=== PATIENT | male | born 1960 | race Caucasian/White ===

== ENCOUNTER 2020-12-01 11:47 | Inpatient (IN) | payer OTHER ==
--- NOTE | 2020-12-01 13:32 | RAD REPORT ---
EXAM DESCRIPTION: RAD - Chest Pa And Lat (2 Views) - 12/01/2020 1:15 pm CLINICAL HISTORY: COUGH COMPARISON: No comparisons FINDINGS: Widespread patchy bilateral airspace disease, centered more in the mid lungs and lung base s. The heart size is within normal limits.No acute osseous abnormality. No significant pleural effusi ons or pneumothorax. IMPRESSION: Widespread airspace disease concerning for at least moderate multifocal pneumonia, inclu ding Covid-19.
[2020-12-01 16:11] LABS: Absolute Lymphocytes (CBC) 0.4 K/uL (0.7-4.9); Basophils % 0.2 % (0-1.3); Hematocrit 48.6 % (39.6-49.0); MPV 8.1 fL (7.6-11.3); RBC Red Blood Cell Count 5.39 M/uL (4.33-5.43)
[2020-12-01 16:12] LABS: Protime INR 1.17
[2020-12-01 16:51] LABS: ALT/SGPT 35 U/L (12-78); AST/SGOT 26 U/L (15-37); Alkaline Phosphatase 88 U/L (45-117); BUN Blood Urea Nitrogen 25 mg/dL (7-18); Bicarbonate 26 mmol/L (21-32); Bilirubin Direct 0.1 mg/dL (0-0.2); Bilirubin Total 0.5 mg/dL (0.2-1.0); Ferritin 745.7 ng/mL (26-388); Glucose Level 110 mg/dL (74-106); Lipase 84 U/L (73-393); Potassium 4.2 mmol/L (3.5-5.1); Protein, Total 7.8 g/dL (6.4-8.2); Sodium Level 136 mmol/L (136-145); Troponin (Emerg Dept Use Only) < 0.02 ng/mL (0.0-0.045)
[2020-12-01] MEDS ORDERED: LORazepam 2 MG/ML VIAL ONE (18:19)
[2020-12-01] MEDS ORDERED: KETOROLAC 30 MG/ML INJ ONE (18:19)
--- NOTE | 2020-12-01 18:38 | RAD REPORT ---
EXAM DESCRIPTION: CT - Chest For Pe Angio - 12/01/2020 6:27 pm CLINICAL HISTORY: DYSPNEA COMPARISON: Chest Pa And Lat (2 Views) dated 12/01/2020 FINDINGS: Chest Wall: No suspicious thyroid nodules or pathologic lymphadenopathy. Lungs: Moderate bilateral airspace disease which is mostly confluent and worse in the mid lungs and l ower lobes. Pleura: No significant effusions or pneumothorax. Mediastinum/hollis: No pathologic lymphadenopathy. Pulmonary arteries/Aorta: No filling defect identified. No aortic aneurysm. Heart: No significant pericardial effusion. Cardiomegaly. Reflux of contrast into the hepatic veins. Upper abdomen: No acute abnormality. Bones: No acute abnormality. IMPRESSION: Negative for pulmonary embolism. Moderate widespread bilateral airspace disease concerni ng for multifocal pneumonia, including Covid-19.
--- NOTE | 2020-12-01 19:25 | ER ---
Nurse's Notes [facility] Name: Arsalan Cervantes Age: 59 yrs Sex: Male : 1960 Arrival Date: 12/01/2020 Time: 11:52 Bed 16 Private MD: Diagnosis: Coronavirus infection, unspecified;Viral pneumonia, unspecified Presentation: 12/01 12:28 Chief complaint: Patient states: Coughing up blood 11/30, SOB, tightness in chest with kg deep breath, low grade fever, sore throat, cough. Coronavirus screen: Client denies travel out of the [place] in the last 14 days. Client indicates they have traveled out of the [place] in the last 14 days. Client presents with at least one sign or symptom that may indicate coronavirus-19. Standard/surgical mask placed on the client. Provider contacted for isolation considerations. Client reports previous positive COVID test result. Date of collection: November 27, 2020. Ebola Screen: Patient negative for fever greater than or equal to 101.5 degrees Fahrenheit, and additional compatible Ebola Virus Disease symptoms Patient denies exposure to infectious person. Patient denies travel to an Ebola-affected area in the 21 days before illness onset. No symptoms or risks identified at this time. Initial Sepsis Screen: Does the patient meet any 2 criteria? No. Patient's initial sepsis screen is negative. Does the patient have a suspected source of infection? No. Patient's initial sepsis screen is negative. Risk Assessment: Do you want to hurt yourself or someone else? Patient reports no desire to harm self or others. Onset of symptoms was November 24, 2020. 12:28 Method Of Arrival: Ambulatory kg 12:28 Acuity: ANITHA 4 kg 14:17 Acuity: ANITHA 3 ss Triage Assessment: 12:34 General: Appears in no apparent distress. Behavior is calm, cooperative, appropriate kg for age, quiet. Pain: Pain currently is 2 out of 10 on a pain scale. at worst was 5 out of 10 on a pain scale. level that patient reports is acceptable is 2 out of 10 on a pain scale. Cardiovascular: Reports chest pain, shortness of breath. Historical: - Allergies: 12:31 No Known Allergies; kg - Home Meds: 12:34 lisinopril 10 mg Oral tab 1 tab once daily [Active]; atenolol 50 mg Oral tab 1 tab once kg daily [Active]; hydrochlorothiazide 25 mg Oral tab once daily [Active]; prednisone 20 mg Oral tab [Active]; Mucus Relief Cough 20-400 mg oral tab [Active]; benzonatate 100 mg oral cap 2 caps [Active]; - PMHx: 12:31 Atrial fibrillation; Sleep apnea; kg 12:32 Skin Cancer; kg - PSHx: 12:32 tounge sx; kg - Immunization history:: Adult Immunizations not up to date, Client reports having NOT received the Covid vaccine. - Social history:: Smoking status: Patient denies any tobacco usage or history of. Patient uses alcohol, occasionally. Screenin:37 Abuse screen: Denies threats or abuse. Denies injuries from another. Nutritional kg screening: No deficits noted. Tuberculosis screening: No symptoms or risk factors identified. Fall Risk None identified. Assessment: 15:11 General: Appears in no apparent distress. comfortable, Behavior is calm, cooperative, jd3 appropriate for age. Pain: Complains of pain in head and chest Pain does not radiate. Quality of pain is described as aching, Pain began gradually. Neuro: Level of Consciousness is awake, alert, obeys commands, Oriented to person, place, time, situation. Cardiovascular: Denies chest pain, Capillary refill < 3 seconds Patient's skin is warm and dry. Respiratory: Reports shortness of breath on exertion cough that is persistent Airway is patent Respiratory effort is even, unlabored, Respiratory pattern is regular, symmetrical, Denies cough, shortness of breath. GI: Abdomen is round non-distended, Abd is soft and non tender X 4 quads. Reports nausea, Patient currently denies abdominal pain. : No signs and/or symptoms were reported regarding the genitourinary system. EENT: No signs and/or symptoms were reported regarding the EENT system. Derm: Skin is intact, Skin is dry, Skin is normal, Skin temperature is warm. Musculoskeletal: Circulation, motion, and sensation intact. Range of motion: intact in all extremities. 16:19 Reassessment: Patient appears in no apparent distress at this time. No changes from jd3 previously documented assessment. Patient and/or family updated on plan of care and expected duration. Pain level reassessed. Patient is alert, oriented x 3, equal unlabored respirations, skin warm/dry/pink. 17:53 Reassessment: Patient appears in no apparent distress at this time. No changes from jd3 previously documented assessment. Patient and/or family updated on plan of care and expected duration. Pain level reassessed. Patient is alert, oriented x 3, equal unlabored respirations, skin warm/dry/pink. 18:50 Reassessment: Patient appears in no apparent distress at this time. Patient and/or jd3 family updated on plan of care and expected duration. Pain level reassessed. Patient is alert, oriented x 3, equal unlabored respirations, skin warm/dry/pink. awaiting CT results. resting comfortably in ER stretcher. 19:05 Reassessment: Patient appears in no apparent distress at this time. Patient and/or jb4 family updated on plan of care and expected duration. Pain level reassessed. Patient is alert, oriented x 3, equal unlabored respirations, skin warm/dry/pink. 19:30 Reassessment: Pt standing to urinate, O2 sats dropped to 89, provider notified. jb4 20:00 Reassessment: Patient appears in no apparent distress at this time. Patient and/or jb4 family updated on plan of care and expected duration. Pain level reassessed. Patient is alert, oriented x 3, equal unlabored respirations, skin warm/dry/pink. Vital Signs: 12:28 Pulse 88; Resp 21; Temp 96.7(TE); Pulse Ox 94% ; Weight 127.01 kg (R); Height 5 ft. 8 kg in. (172.72 cm) (R); Pain 2/10; 12:28 BP 150 / 96; kg 15:10 Pulse 84; Resp 20 S; Pulse Ox 94% on R/A; jd3 16:19 BP 146 / 75; Pulse 70; Resp 20 S; Pulse Ox 95% on R/A; jd3 17:53 BP 130 / 73; Pulse 78; Resp 20 S; Pulse Ox 95% on R/A; jd3 18:51 Pulse 95; Resp 20 S; Pulse Ox 94% on R/A; jd3 19:36 BP 161 / 99; Pulse 95; Resp 20; Pulse Ox 93% on R/A; jb4 12:28 Body Mass Index 42.57 (127.01 kg, 172.72 cm) kg ED Course: 11:52 Patient arrived in ED. as 12:31 Triage completed. kg 12:37 Patient has correct armband on for positive identification. kg 13:15 XRAY Chest Pa And Lat (2 Views) In Process Unspecified. EDMS 13:48 In[facility] Thurston [facility]C [facility] kb 13:49 Heraclio Meneses MD is Attending Physician. kb 13:59 Chris Sandoval, ТАТЬЯНА is Primary Nurse. jd3 14:45 Missed attempt(s): 20 gauge in left antecubital area. Bleeding controlled, band aid jd3 applied, catheter tip intact. Missed attempt(s): 20 gauge in right forearm. Bleeding controlled, band aid applied, catheter tip intact. Patient maintains SpO2 saturation greater than 95% on room air. 15:10 media monitor on. Pulse ox on. NIBP on. jd3 15:13 Arm band placed on. EKG completed in triage. Results shown to MD. jd3 18:27 CT Chest For PE Angio In Process Unspecified. EDMS 19:23 Alon Merlos is Hospitalizing Provider. kb 20:23 No provider procedures requiring assistance completed. Patient admitted, IV remains in jb4 place. Administered Medications: 18:03 Drug: Ketorolac 30 mg Route: IVP; Site: right antecubital; jd3 19:00 Follow up: Response: No adverse reaction; Marked relief of symptoms; Pain is decreased jb4 18:04 Drug: Ativan (LORazepam) 0.5 mg Route: IVP; Site: right antecubital; jd3 19:00 Follow up: Response: No adverse reaction jb4 19:47 Drug: SOLU-Medrol (methylPrednisoLONE) 125 mg Route: IVP; Site: right antecubital; jb4 20:06 Follow up: Response: No adverse reaction jb4 20:06 Drug: Lovenox (enoxaparin) 40 mg Route: Sub-Q; Site: left lower abdomen; jb4 20:23 Follow up: Response: No adverse reaction jb4 Outcome: 19:24 Decision to Hospitalize by Provider. kb 20:23 Admitted to ER Hold. [facility] for further documentation. jb4 20:23 Condition: stable 20:23 Discharge instructions given to patient, Instructed on the need for admit, Demonstrated understanding of instructions. 12/04 21:55 Patient left the ED. mw Signatures: Dispatcher [employer] Ingrid Knutson, HEDIS NURSE-C HEDIS NURSE-Ckb Viridiana Pfeiffer RN RN Apurva Saldana Shelby, RN RN ss Sony Stacy RN RN jb4 Chris Sandoval RN RN jd3 Sita Tan RN RN kg
--- NOTE | 2020-12-01 19:25 | EDPHYS ---
Physician Documentation [facility] Name: Arsalan Cervantes Age: 59 yrs Sex: Male : 1960 Arrival Date: 12/01/2020 Time: 11:52 Bed 16 Private MD: ED Physician Heraclio Meneses HPI: 12/01 16:20 This 59 yrs old Male presents to ER via Ambulatory with complaints of Chest kb Pain, Cough - covid+. 16:20 The patient or guardian reports cough, that is intermittent, described as mild, kb difficulty breathing, flu symptoms, low-grade fever, myalgias. Onset: The symptoms/episode began/occurred yesterday. Severity of symptoms: At their worst the symptoms were moderate, in the emergency department the symptoms are unchanged. Modifying factors: The symptoms are alleviated by nothing, the symptoms are aggravated by nothing. Associated signs and symptoms: Pertinent positives: chest pain, fever, sore throat, Pertinent negatives: diarrhea, ear ache, nausea, rhinorrhea, vomiting. The patient has not experienced similar symptoms in the past. The patient has been recently seen by a physician:. States he has Covid. Came in today because his symptoms started getting worse yesterday. Reports cough with blood, fever, chest tightness with deep inspiration, and intermittent shortness of breath. Historical: - Allergies: 12:31 No Known Allergies; kg - Home Meds: 12:34 lisinopril 10 mg Oral tab 1 tab once daily [Active]; atenolol 50 mg Oral tab 1 tab once kg daily [Active]; hydrochlorothiazide 25 mg Oral tab once daily [Active]; prednisone 20 mg Oral tab [Active]; Mucus Relief Cough 20-400 mg oral tab [Active]; benzonatate 100 mg oral cap 2 caps [Active]; - PMHx: 12:31 Atrial fibrillation; Sleep apnea; kg 12:32 Skin Cancer; kg - PSHx: 12:32 tounge sx; kg - Immunization history:: Adult Immunizations not up to date, Client reports having NOT received the Covid vaccine. - Social history:: Smoking status: Patient denies any tobacco usage or history of. Patient uses alcohol, occasionally. ROS: 16:28 Abdomen/GI: Negative for abdominal pain, nausea, vomiting, diarrhea, and constipation. kb 16:28 Constitutional: Positive for chills, fatigue, fever, malaise. 16:28 Cardiovascular: Positive for chest pain, Negative for edema, orthopnea, palpitations, paroxysmal nocturnal dyspnea. 16:28 Respiratory: Positive for cough, dyspnea on exertion, hemoptysis, shortness of breath. 16:28 All other systems are negative. Exam: 16:28 Constitutional: This is a well developed, well nourished patient who is awake, alert, kb and in no acute distress. Head/Face: Normocephalic, atraumatic. ENT: Moist Mucous membranes Cardiovascular: Regular rate and rhythm with a normal S1 and S2. No gallops, murmurs, or rubs. No pulse deficits. Respiratory: Respirations even and unlabored. No increased work of breathing, no retractions or nasal flaring. Abdomen/GI: Soft, non-tender. No distention Skin: Warm, dry with normal turgor. Normal color. MS/ Extremity: Pulses equal, no cyanosis. Neurovascular intact. Full, normal range of motion. Neuro: Awake and alert, GCS 15, oriented to person, place, time, and situation. Moves all extremities. Normal gait. Psych: Awake, alert, with orientation to person, place and time. Behavior, mood, and affect are within normal limits. Vital Signs: 12:28 Pulse 88; Resp 21; Temp 96.7(TE); Pulse Ox 94% ; Weight 127.01 kg (R); Height 5 ft. 8 kg in. (172.72 cm) (R); Pain 2/10; 12:28 BP 150 / 96; kg 15:10 Pulse 84; Resp 20 S; Pulse Ox 94% on R/A; jd3 16:19 BP 146 / 75; Pulse 70; Resp 20 S; Pulse Ox 95% on R/A; jd3 17:53 BP 130 / 73; Pulse 78; Resp 20 S; Pulse Ox 95% on R/A; jd3 18:51 Pulse 95; Resp 20 S; Pulse Ox 94% on R/A; jd3 19:36 BP 161 / 99; Pulse 95; Resp 20; Pulse Ox 93% on R/A; jb4 12:28 Body Mass Index 42.57 (127.01 kg, 172.72 cm) kg MDM: 13:49 Patient medically screened. kb 16:28 Data reviewed: vital signs, nurses notes. Data interpreted: Pulse oximetry: on room air kb is 95 %. Interpretation: normal. 19:21 Counseling: I had a detailed discussion with the patient and/or guardian regarding: the kb historical points, exam findings, and any diagnostic results supporting the discharge/admit diagnosis, lab results, radiology results, the need for further work-up and treatment in the hospital. Physician consultation: Alexys DANIEL was contacted at 19:22, regarding admission, to the telemetry unit. patient's condition, and will see patient in ED, shortly. 12/01 13:49 Order name: BMP kb 12/01 13:49 Order name: Blood Culture Adult (2); Complete Time: 18:03 kb 12/01 13:49 Order name: C-Reactive Protein; Complete Time: 17:28 kb 12/01 13:49 Order name: CBC with Diff; Complete Time: 19:49 kb 12/01 13:49 Order name: D-Dimer; Complete Time: 16:14 kb 12/01 13:49 Order name: Ferritin; Complete Time: 17:28 kb 12/01 13:49 Order name: LFT's; Complete Time: 17:28 kb 12/01 13:49 Order name: Lactate; Complete Time: 15:36 kb 12/01 13:49 Order name: Lipase; Complete Time: 17:28 kb 12/01 13:49 Order name: PT-INR; Complete Time: 16:14 kb 12/01 13:49 Order name: Procalcitonin; Complete Time: 17:28 kb 12/01 13:49 Order name: Ptt, Activated; Complete Time: 16:14 kb 12/01 13:49 Order name: Troponin (emerg Dept Use Only); Complete Time: 17:28 kb 12/01 13:50 Order name: Basic Metabolic Panel; Complete Time: 17:28 EDMS 12/01 19:45 Order name: CBC Smear Scan; Complete Time: 19:49 EDMS 12/02 00:55 Order name: Urinalysis; Complete Time: 18:03 EDMS 12/02 01:45 Order name: Urine Microscopic Only; Complete Time: 18:03 EDMS 12/02 04:36 Order name: CBC with Automated Diff; Complete Time: 18:03 EDMS 12/02 04:38 Order name: D-Dimer; Complete Time: 18:03 EDMS 12/02 05:03 Order name: Comprehensive Metabolic Panel; Complete Time: 18:03 EDMS 12/02 05:03 Order name: Lipid Profile; Complete Time: 18:03 EDMS 12/02 05:03 Order name: C-Reactive Protein; Complete Time: 18:03 EDMS 12/02 05:04 Order name: T4 Free; Complete Time: 18:03 EDMS 12/02 05:04 Order name: Magnesium; Complete Time: 18:03 EDMS 12/02 05:04 Order name: Thyroid Stimulating Hormone; Complete Time: 18:03 EDMS 12/02 05:04 Order name: Ferritin; Complete Time: 18:03 EDMS 12/03 05:13 Order name: CBC with Automated Diff EDMS 12/03 05:34 Order name: Comprehensive Metabolic Panel EDMS 12/03 05:34 Order name: C-Reactive Protein EDMS 12/03 05:34 Order name: Magnesium EDMS 12/01 12:37 Order name: XRAY Chest Pa And Lat (2 Views); Complete Time: 13:49 kg 12/01 13:49 Order name: EKG; Complete Time: 13:50 kb 12/01 13:49 Order name: Cardiac monitoring; Complete Time: 14:51 kb 12/01 13:49 Order name: Droplet/Contact Precautions; Complete Time: 14:51 kb 12/01 13:49 Order name: EKG - Nurse/Tech; Complete Time: 14:51 kb 12/01 13:49 Order name: IV Start; Complete Time: 15:57 kb 12/01 13:49 Order name: Labs collected and sent; Complete Time: 14:51 kb 12/01 13:49 Order name: O2 Per Protocol; Complete Time: 14:51 kb 12/01 13:49 Order name: O2 Sat Monitoring; Complete Time: 14:51 kb 12/01 15:05 Order name: Labs - recollect needed: recollect labs; Complete Time: 15:57 bd 12/01 16:14 Order name: CT Chest For PE Angio; Complete Time: 18:40 kb 12/03 05:48 Order name: Ferritin EDMS 12/04 05:40 Order name: CBC with Automated Diff EDMS 12/04 05:56 Order name: Comprehensive Metabolic Panel EDMS 12/04 05:56 Order name: C-Reactive Protein EDMS 12/04 05:56 Order name: Magnesium EDMS 12/04 05:56 Order name: Ferritin EDMS Administered Medications: 18:03 Drug: Ketorolac 30 mg Route: IVP; Site: right antecubital; jd3 19:00 Follow up: Response: No adverse reaction; Marked relief of symptoms; Pain is decreased jb4 18:04 Drug: Ativan (LORazepam) 0.5 mg Route: IVP; Site: right antecubital; jd3 19:00 Follow up: Response: No adverse reaction jb4 19:47 Drug: SOLU-Medrol (methylPrednisoLONE) 125 mg Route: IVP; Site: right antecubital; jb4 20:06 Follow up: Response: No adverse reaction jb4 20:06 Drug: Lovenox (enoxaparin) 40 mg Route: Sub-Q; Site: left lower abdomen; jb4 20:23 Follow up: Response: No adverse reaction jb4 Disposition: 12/05 07:01 Co-signature as Attending Physician, Heraclio Meneses MD. rn 07:01 I agree with the assessment and plan of care. Attestation: The patient's history, exam rn findings, diagnostics, and a summary of any interventions or procedures was reviewed in detail with Ingrid DANIEL. Disposition Summary: 12/01/20 19:24 Hospitalization Ordered Hospitalization Status: Observation kb Provider: Alon Merlos Condition: Stable kb Problem: new kb Symptoms: are unchanged kb Bed/Room Type: Standard kb Location: [facility] ER HOLD(12/01/20 20:03) tl1 Room Assignment: ERHOLD-(12/01/20 20:03) tl1 Diagnosis - Coronavirus infection, unspecified kb - Viral pneumonia, unspecified kb Forms: - Medication Reconciliation Form kb - SBAR form kb Signatures: Dispatcher [employer] EDIngrid Carmona, SANTIAGO-C RESEARCH GEOLOGIST-CkEvi Barrera Roman, MD MD rn Attema, Lee, FNP-C SANTIAGO-Hilda Thomas RN RN tl1 Sony Stacy RN RN jb4 Chris Sandoval RN RN jSita Yoo RN RN kg Corrections: (The following items were deleted from the chart) 12/01 20:03 19:24 Telemetry/MedSurg (observation) kb tl1 20:03 19:24 kb tl1
[2020-12-01 19:44] LABS: Blood Morphology Comment NOT SEEN (NOT SEEN); Platelet Estimate ADEQ; White Blood Cell Scan OK (OK)
--- NOTE | 2020-12-01 20:03 | P.HP ---
Certification for Inpatient Patient admitted to: Inpatient With expected LOS: >2 Midnights Patient will require the following post-hospital care: None Practitioner: I am a practitioner with admitting privileges, knowledge of patient current condition, hospital course, and medical plan of care. Services: Services provided to patient in accordance with Admission requirements found in Title 42 Section 412.3 of the Code of Federal Regulations Patient History Date of Service: 12/01/20 Primary Care Provider: Flako pierre Reason for admission: COVID-19 pneumonia History of Present Illness: 59-year-old male with history of atrial fibrillation, obstructive sleep apnea presents emergency department for shortness of breath. Patient reports testing positive for Covid on 11/27/2020 with symptoms beginning on 11/24/2020. Patient has been on oral prednisone at home, not feeling any better. Patient evaluated in the emergency department, labs significant for white blood cell count 12.4 D-dimer 1061 ferritin 745 C-reactive protein [address] PE protocol shows moderate COVID-19, patient does report some mild periodic hemoptysis. 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 - Family History Mother -: Cancer Brother -: Diabetes, Kidney disease - Social History Smoking Status: Never smoker Alcohol use: No CD- Drugs: No Caffeine use: Yes Place of Residence: Home Review of Systems 10-point ROS is otherwise unremarkable General: Weakness, Malaise Respiratory: Cough, Shortness of Breath, Hemoptysis, SOB with Excertion Physical Examination - Physical Exam General: Alert, In no apparent distress, Oriented x3 HEENT: Atraumatic, PERRLA, Mucous membr. moist/pink, EOMI, Sclerae nonicteric Neck: Supple, 2+ carotid pulse no bruit, No LAD, Without JVD or thyroid abnormality Respiratory: Normal air movement, Diminished Cardiovascular: Normal S1 S2, Irregular heart rate/rhythm (A. fib, rate controlled) Gastrointestinal: Normal bowel sounds, No tenderness Musculoskeletal: No tenderness Integumentary: No rashes Neurological: Normal speech, Normal strength at 5/5 x4 extr, Normal tone, Normal affect Lymphatics: No axilla or inguinal lymphadenopathy - Studies Laboratory Data (last 24 hrs) 12/01/20 15:46: PT 13.5 H, INR 1.17, APTT 27.4 12/01/20 15:46: WBC 12.40 H, Hgb 16.4, Hct 48.6, Plt Count 260 12/01/20 15:46: Sodium 136, Potassium 4.2, BUN 25 H, Creatinine 1.08, Glucose 110 H, Total Bilirubin 0.5, AST 26, ALT 35, Alkaline Phosphatase 88, Lipase 84 Assessment and Plan - Plan Assessment: Acute hypoxic respiratory failure secondary to COVID-19 pneumonia with mild hemoptysisunvaccinated Atrial fibrillation not on chronic anticoagulation therapy Obstructive sleep apnea Obesity Plan: Acute hypoxic respiratory failure secondary to COVID-19 pneumonia with mild hemoptysisunvaccinated: CRP significantly elevated, pharmacy consulted for barcitinib. Continue with IV steroids, oral supplements. Daily CRP/ferritin/D- dimer levels. CT negative for pulmonary embolism, patient reports mild hemoptysis over the course of the last 24 to 48 hours. The case discussed with pulmonology recommends Lovenox 40 mg subcu twice daily. Patient previously on Xarelto for A. fib but unable to afford this, will likely need to be discharged on Eliquis with coupon. Supplemental oxygen as needed, daily room air saturations. Atrial fibrillation not on chronic anticoagulation therapy: Previously on Xa relto, unable to afford. Will hold off on full anticoagulation at this time due to mild to mod assist, case was discussed with pulmonology. If patient does well can be advanced to full anticoagulation. Obstructive sleep apnea: Supplemental oxygen as needed, CPAP/BiPAP as needed. Obesity: Lifestyle changes addressed, patient at risk for worsening Covid. DVT PPX: Lovenox Code status: Full Discharge Plan: Home Plan to discharge in: 48 Hours - Advance Directives Does patient have a Living Will: No Does patient have a Durable POA for Healthcare: No - Code Status/Comfort Care Code Status Assessed: Yes (Full code) Critical Care: No Time Spent Managing Pts Care (In Minutes): 55
[2020-12-01] MEDS ORDERED: METHYLPREDNISOLONE 125 MG INJ ONE (20:06)
[2020-12-01] MEDS ORDERED: ENOXAPARIN 40 MG/0.4 ML SQ ONE (20:22)
[2020-12-01] MEDS: METHYLPREDNISOLONE 40 MG INJ IV SCH (21:01)
[2020-12-01] MEDS ORDERED: ONDANSETRON 4 MG/2 ML VIAL IV PRN (21:01)
[2020-12-01] MEDS: ASCORBIC ACID 500 MG TABLET PO SCH (21:01)
[2020-12-01] MEDS: ATORVASTATIN 20 MG TAB PO SCH (21:01)
[2020-12-01] MEDS ORDERED: ASCORBIC ACID 500 MG TABLET ONE (21:54)
[2020-12-01] MEDS ORDERED: ATORVASTATIN 40 MG TAB ONE (21:56)
[2020-12-02 00:52] LABS: Urine Appearance CLEAR (Clear); Urine Bilirubin NEGATIVE (Negative); Urine Blood TRACE (Negative); Urine Color YELLOW (Yellow); Urine Glucose TRACE (Negative); Urine Protein 3+ (Negative); Urine Specific Gravity >=1.030 (1.005-1.030)
[2020-12-02 00:55] LABS: Urine Microscopic Reflex ORDER UMIC
[2020-12-02 01:44] LABS: Urine Amorphous Sediment 1+ /HPF (NONE SEEN); Urine Bacteria <20 /HPF (NONE SEEN); Urine RBC <5 /HPF (NONE SEEN)
[2020-12-02 04:35] LABS: Absolute Lymphocytes (CBC) 0.3 K/uL (0.7-4.9); Basophils % 0.1 % (0-1.3); Hematocrit 46.4 % (39.6-49.0); Lymphocytes % 2.8 % (15.3-44.8); RBC Red Blood Cell Count 5.15 M/uL (4.33-5.43)
[2020-12-02 05:03] LABS: Albumin 2.7 g/dL (3.4-5.0); Bilirubin Total 0.4 mg/dL (0.2-1.0); Ferritin 814.5 ng/mL (26-388); Magnesium 1.9 mg/dL (1.8-2.4); Protein, Total 7.3 g/dL (6.4-8.2); Thyroid Stimulating Hormone 0.444 uIU/mL (0.360-3.740)
--- NOTE | 2020-12-02 07:30 | EKG ---
Test Date: 2020-12-01 Test Time: 15:03:44 Reporter: IVA MEASUREMENT RESULTS: Intervals: Rate: 90 ID: [id number] QT: 354 QTc: 433 Grethel: P: ID: [id number] T: 150 INTERPRETIVE STATEMENTS: Atrial fibrillation Anteroseptal infarct, age undetermined T wave abnormality, consider lateral ischemia Abnormal ECG No previous ECG available for comparison Electronically Signed On 12-02-20 07:28:20 CDT by Irving Jimenez
[2020-12-02] MEDS: ASCORBIC ACID 500 MG TABLET PO SCH ×4 (09:00→20:46)
[2020-12-02] MEDS: ZINC SULFATE 220 MG CAP PO SCH (09:00)
[2020-12-02] MEDS: ENOXAPARIN 40 MG/0.4 ML SQ SCH ×2 (09:00→20:46)
[2020-12-02] MEDS: THIAMINE HCL 100 MG TABLET PO SCH (09:00)
[2020-12-02] MEDS: ASPIRIN EC 81 MG TAB PO SCH (09:00)
[2020-12-02] MEDS: hydroCHLOROthiazide 25 MG TAB PO SCH (09:00)
[2020-12-02] MEDS: atenoloL 50 MG TAB PO SCH (09:00)
[2020-12-02] MEDS: lisinopriL 10 MG TAB PO SCH (09:00)
[2020-12-02] MEDS: VITAMIN D 1000 UNIT TAB PO SCH (09:00)
[2020-12-02] MEDS: METHYLPREDNISOLONE 40 MG INJ IV SCH ×3 (09:00→20:46)
[2020-12-02] MEDS ORDERED: atenoloL 50 MG TAB ONE (09:51)
[2020-12-02] MEDS ORDERED: METHYLPREDNISOLONE 125 MG INJ ONE (09:51)
[2020-12-02] MEDS ORDERED: ASCORBIC ACID 500 MG TABLET ONE ×4 (09:52→20:58)
[2020-12-02] MEDS ORDERED: ZINC SULFATE 220 MG CAP ONE (09:52)
[2020-12-02] MEDS ORDERED: lisinopriL 10 MG TAB ONE (09:52)
[2020-12-02] MEDS ORDERED: THIAMINE HCL 100 MG TABLET ONE (09:52)
[2020-12-02] MEDS ORDERED: ENOXAPARIN 40 MG/0.4 ML SQ ONE ×2 (09:53→20:58)
[2020-12-02] MEDS ORDERED: ASPIRIN EC 81 MG TAB PO ONE (09:53)
[2020-12-02] MEDS ORDERED: hydroCHLOROthiazide 25 MG TAB ONE (10:03)
[2020-12-02] MEDS ORDERED: VITAMIN D 1000 UNIT TAB ONE (10:43)
[2020-12-02] MEDS ORDERED: METHYLPREDNISOLONE 40 MG INJ ONE ×2 (14:03→20:58)
--- NOTE | 2020-12-02 16:48 | P.PN ---
Subjective Date of Service: 12/02/20 Primary Care Provider: [facility] Chief Complaint: COVID-19 pneumonia Patient states his breathing is better. Seen without oxygen. He is coughing intermittently. He was on CPAP/BIPAP earlier. Physical Examination - Vital Signs Temperature: 98.6 F Blood Pressure: 140/78 Pulse: 90 Respirations: 23 Pulse Ox (%): 92 - Physical Exam General: Alert, In no apparent distress, Obese HEENT: Atraumatic Neck: JVD not distended Respiratory: Other (Nonlabored breathing) Cardiovascular: No edema, Regular rate/rhythm, Normal S1 S2 Gastrointestinal: Soft and benign, Non-distended Musculoskeletal: No swelling Integumentary: No rashes Neurological: Normal strength at 5/5 x4 extr - Studies Laboratory Data (last 24 hrs) 12/01/20 15:46: WBC 12.40 H, Hgb 16.4, Hct 48.6, Plt Count 260 12/01/20 15:46: Sodium 136, Potassium 4.2, BUN 25 H, Creatinine 1.08, Glucose 110 H, Total Bilirubin 0.5, AST 26, ALT 35, Alkaline Phosphatase 88, Lipase 84 Assessment And Plan - Current Problems (Diagnosis) (1) Pneumonia due to 2019 novel coronavirus Current Visit: Yes Status: Acute (2) Acute respiratory failure with hypoxia Current Visit: Yes Status: Acute (3) Morbid obesity Current Visit: Yes Status: Acute - Plan Continue COVID protocol with IV steroid, vitamin supplementation, bronchodilators p.r.n.. Ivermectin Pharmacy assessing for antiviral therapy. Pulmonary consult. Josiqukade for DVT prophylaxis. Titrate oxygen. BiPAP p.r.n. Monitor inflammatory markers.
--- NOTE | 2020-12-02 17:14 | P.CNS ---
Date of Consult: 12/02/20 Primary Care Provider: [facility] Chief Complaint: COVID-19 pneumonia History of Present Illness: Age 59 Aw COVID penumonia. HXof AFIB andhemoptysis, Taking oral pred at home not doign better. 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 - Family History Mother Medical History: Cancer Brother Medical History: Diabetes, Kidney disease - Social History Alcohol use: No CD- Drugs: No Caffeine use: Yes Place of Residence: Home Review of Systems General: Weakness Respiratory: Shortness of Breath, Hemoptysis Physical Examination Temp Pulse Resp BP Pulse Ox 98.6 F 90 23 H 140/78 92 12/02/20 16:48 12/02/20 16:48 12/02/20 16:48 12/02/20 16:48 12/02/20 16:48 General: Alert, In no apparent distress, Oriented x3, Mild distress Laboratory Data (last 24 hrs) 12/01/20 15:46: WBC 12.40 H, Hgb 16.4, Hct 48.6, Plt Count 260 - Problems (1) Pneumonia due to 2019 novel coronavirus Current Visit: Yes Status: Acute Plan: Pt is 59 of age AW resp failure/ Cw steroids and ivermectin and aspirin/ HX of hemoptysis Ct scan bialteral COVid pneumonia
[2020-12-02] MEDS: IVERMECTIN 3 MG TABLET PO SCH (18:00)
[2020-12-02] MEDS ORDERED: IVERMECTIN 3 MG TABLET PO SCH (18:00)
[2020-12-02] MEDS: ATORVASTATIN 20 MG TAB PO SCH (20:32)
[2020-12-02] MEDS: BENZONATATE 100 MG CAP PO PRN (20:46)
[2020-12-02] MEDS: ACETAMINOPHEN 500 MG TAB PO PRN (20:46)
[2020-12-02] MEDS ORDERED: ACETAMINOPHEN 500 MG TAB ONE (20:57)
[2020-12-02] MEDS ORDERED: ONDANSETRON 4 MG/2 ML VIAL ONE (20:57)
[2020-12-02] MEDS ORDERED: ATORVASTATIN 20 MG TAB ONE (20:57)
[2020-12-02] MEDS ORDERED: BENZONATATE 100 MG CAP PO ONE (20:57)
[2020-12-03 05:04] LABS: Absolute Lymphocytes (CBC) 0.5 K/uL (0.7-4.9); Basophils % 0.1 % (0-1.3); Hematocrit 45.6 % (39.6-49.0); Lymphocytes % 2.6 % (15.3-44.8); MPV 7.9 fL (7.6-11.3)
[2020-12-03 05:34] LABS: Albumin 2.6 g/dL (3.4-5.0); Bilirubin Total 0.5 mg/dL (0.2-1.0); C-Reactive Protein 87.4 mg/L (<3.00); Magnesium 1.9 mg/dL (1.8-2.4); Potassium 4.3 mmol/L (3.5-5.1); Protein, Total 7.1 g/dL (6.4-8.2)
[2020-12-03 05:48] LABS: Ferritin 884.2 ng/mL (26-388)
[2020-12-03] MEDS: ENOXAPARIN 40 MG/0.4 ML SQ SCH ×2 (08:52→20:12)
[2020-12-03] MEDS: VITAMIN D 1000 UNIT TAB PO SCH (08:52)
[2020-12-03] MEDS: ASPIRIN EC 81 MG TAB PO SCH (08:53)
[2020-12-03] MEDS: ZINC SULFATE 220 MG CAP PO SCH (08:53)
[2020-12-03] MEDS: THIAMINE HCL 100 MG TABLET PO SCH (08:53)
[2020-12-03] MEDS: atenoloL 50 MG TAB PO SCH (08:53)
[2020-12-03] MEDS: lisinopriL 10 MG TAB PO SCH (08:54)
[2020-12-03] MEDS: hydroCHLOROthiazide 25 MG TAB PO SCH (08:54)
[2020-12-03] MEDS: ASCORBIC ACID 500 MG TABLET PO SCH ×4 (08:55→20:11)
[2020-12-03] MEDS: METHYLPREDNISOLONE 40 MG INJ IV SCH ×3 (08:57→20:11)
[2020-12-03] MEDS ORDERED: METHYLPREDNISOLONE 125 MG INJ ONE (09:09)
[2020-12-03] MEDS ORDERED: THIAMINE HCL 100 MG TABLET ONE (09:09)
[2020-12-03] MEDS ORDERED: ZINC SULFATE 220 MG CAP ONE (09:09)
[2020-12-03] MEDS ORDERED: atenoloL 50 MG TAB ONE (09:09)
[2020-12-03] MEDS ORDERED: lisinopriL 10 MG TAB ONE (09:10)
[2020-12-03] MEDS ORDERED: ENOXAPARIN 40 MG/0.4 ML SQ ONE ×2 (09:10→20:26)
[2020-12-03] MEDS ORDERED: ASPIRIN EC 81 MG TAB PO ONE (09:10)
[2020-12-03] MEDS ORDERED: VITAMIN D 1000 UNIT TAB ONE (09:10)
[2020-12-03] MEDS ORDERED: hydroCHLOROthiazide 25 MG TAB ONE (09:10)
[2020-12-03] MEDS ORDERED: ASCORBIC ACID 500 MG TABLET ONE ×4 (09:10→20:26)
[2020-12-03] MEDS ORDERED: METHYLPREDNISOLONE 40 MG INJ ONE ×3 (09:19→20:29)
--- NOTE | 2020-12-03 15:23 | P.PN ---
Subjective Date of Service: 12/03/20 Primary Care Provider: [facility] Chief Complaint: COVID-19 pneumonia Patient states his breathing is better. Patient is using his CPAP most of the time. Physical Examination - Vital Signs Temperature: 98.0 F Blood Pressure: 145/81 Pulse: 81 Respirations: 25 Pulse Ox (%): 92 - Physical Exam General: In no apparent distress, Obese HEENT: Mucous membr. moist/pink Neck: JVD not distended Respiratory: Other (No labored breathing) Cardiovascular: Regular rate/rhythm, Normal S1 S2 Gastrointestinal: Soft and benign, Non-distended Musculoskeletal: No swelling Integumentary: No rashes Neurological: Normal strength at 5/5 x4 extr Assessment And Plan - Current Problems (Diagnosis) (1) Pneumonia due to 2019 novel coronavirus Current Visit: Yes Status: Acute (2) Acute respiratory failure with hypoxia Current Visit: Yes Status: Acute (3) Morbid obesity Current Visit: Yes Status: Acute - Plan Continue COVID protocol with IV steroid, vitamin supplementation, bronchodilators p.r.n.. Patient on Ivermectin Pharmacy assessing for antiviral therapy. Pulmonary input appreciated Francisco Javier for DVT prophylaxis. Titrate oxygen. BiPAP p.r.n. Monitor inflammatory markers.
[2020-12-03] MEDS: ATORVASTATIN 20 MG TAB PO SCH (20:11)
[2020-12-03] MEDS ORDERED: ATORVASTATIN 20 MG TAB ONE (20:25)
[2020-12-04 05:33] LABS: Absolute Lymphocytes (CBC) 0.3 K/uL (0.7-4.9); Basophils % 0.2 % (0-1.3); Hematocrit 45.5 % (39.6-49.0); MPV 7.6 fL (7.6-11.3); RBC Red Blood Cell Count 5.12 M/uL (4.33-5.43)
[2020-12-04 05:55] LABS: Albumin 2.6 g/dL (3.4-5.0); Bilirubin Total 0.5 mg/dL (0.2-1.0); C-Reactive Protein 34.3 mg/L (<3.00); Ferritin 690.1 ng/mL (26-388); Potassium 3.9 mmol/L (3.5-5.1); Protein, Total 6.8 g/dL (6.4-8.2)
[2020-12-04] MEDS ORDERED: THIAMINE HCL 100 MG TABLET ONE (08:12)
[2020-12-04] MEDS ORDERED: ZINC SULFATE 220 MG CAP ONE (08:12)
[2020-12-04] MEDS ORDERED: atenoloL 50 MG TAB ONE (08:12)
[2020-12-04] MEDS ORDERED: ASPIRIN EC 81 MG TAB PO ONE (08:12)
[2020-12-04] MEDS ORDERED: ASCORBIC ACID 500 MG TABLET ONE ×3 (08:13→20:36)
[2020-12-04] MEDS ORDERED: VITAMIN D 1000 UNIT TAB ONE (08:13)
[2020-12-04] MEDS ORDERED: lisinopriL 10 MG TAB ONE (08:13)
[2020-12-04] MEDS ORDERED: POTASSIUM CL SA 10 MEQ TAB PO ONE ×2 (08:13→09:00)
[2020-12-04] MEDS ORDERED: METHYLPREDNISOLONE 40 MG INJ ONE ×3 (08:14→13:49)
[2020-12-04] MEDS ORDERED: ENOXAPARIN 40 MG/0.4 ML SQ ONE ×2 (08:14→20:36)
[2020-12-04] MEDS: VITAMIN D 1000 UNIT TAB PO SCH (09:00)
[2020-12-04] MEDS: hydroCHLOROthiazide 25 MG TAB PO SCH (09:00)
[2020-12-04] MEDS: ASPIRIN EC 81 MG TAB PO SCH (09:00)
[2020-12-04] MEDS: ENOXAPARIN 40 MG/0.4 ML SQ SCH ×2 (09:24→20:43)
[2020-12-04] MEDS: atenoloL 50 MG TAB PO SCH (09:25)
[2020-12-04] MEDS: ZINC SULFATE 220 MG CAP PO SCH (09:26)
[2020-12-04] MEDS: lisinopriL 10 MG TAB PO SCH (09:26)
[2020-12-04] MEDS: ASCORBIC ACID 500 MG TABLET PO SCH ×4 (09:26→20:43)
[2020-12-04] MEDS: THIAMINE HCL 100 MG TABLET PO SCH (09:26)
[2020-12-04] MEDS: METHYLPREDNISOLONE 40 MG INJ IV SCH ×3 (09:51→20:43)
[2020-12-04] MEDS: BARICITINIB 2 MG TABLET PO SCH (10:01)
[2020-12-04] MEDS ORDERED: hydroCHLOROthiazide 25 MG TAB ONE ×2 (10:11→10:12)
--- NOTE | 2020-12-04 11:22 | P.PN ---
Subjective Date of Service: 12/04/20 Primary Care Provider: Omar ignacio Chief Complaint: COVID-19 pneumonia Still on high conc of O2 / Stable Review of Systems General: Weakness Respiratory: Shortness of Breath Physical Examination - Vital Signs Temperature: 97.8 F Blood Pressure: 112/56 Pulse: 80 Respirations: 20 Pulse Ox (%): 93 - Physical Exam General: Alert, Oriented x3, Cooperative Assessment & Plan - Problems (Diagnosis) (1) Pneumonia due to 2019 novel coronavirus Current Visit: Yes Status: Acute Plan: No sig change/ Requiring high conc of O2/ labs reviewed/ Add Barctinib/ DC HZTZ/ poss DC am
--- NOTE | 2020-12-04 14:53 | P.PN ---
Subjective Date of Service: 12/04/20 Primary Care Provider: [facility] Chief Complaint: COVID-19 pneumonia Patient requiring 5-6 L of oxygen by nasal canula. He is complaining of shortness of breath. Physical Examination - Vital Signs Temperature: 97.8 F Blood Pressure: 128/52 Pulse: 83 Respirations: 28 Pulse Ox (%): 90 - Physical Exam General: Alert, In no apparent distress Neck: JVD not distended Respiratory: Other (Nonlabored breathing) Cardiovascular: No edema, Regular rate/rhythm, Normal S1 S2 Gastrointestinal: Soft and benign, Non-distended Musculoskeletal: No swelling Integumentary: No rashes Neurological: Normal strength at 5/5 x4 extr Assessment And Plan - Current Problems (Diagnosis) (1) Pneumonia due to 2019 novel coronavirus Current Visit: Yes Status: Acute (2) Acute respiratory failure with hypoxia Current Visit: Yes Status: Acute (3) Morbid obesity Current Visit: Yes Status: Acute - Plan Continue IV steroid, vitamin supplementation, bronchodilators p.r.n.. Patient on Ivermectin Patient started on Baracitinib Pulmonary-Dr. León is followingSuad Mcintyre for DVT prophylaxis. Wean oxygen as tolerated BiPAP p.r.n. Monitor inflammatory markers.
[2020-12-04] MEDS: IVERMECTIN 3 MG TABLET PO SCH (17:56)
[2020-12-04] MEDS ORDERED: METHYLPREDNISOLONE 125 MG INJ ONE (20:35)
[2020-12-04] MEDS ORDERED: ATORVASTATIN 20 MG TAB ONE (20:35)
[2020-12-04] MEDS: ATORVASTATIN 20 MG TAB PO SCH (20:43)
[2020-12-04] MEDS: TRAZODONE 50 MG TABLET PO SCH (21:00)
[2020-12-05] MEDS ORDERED: atenoloL 25 MG TAB ONE ×2 (07:46→08:08)
[2020-12-05 07:53] LABS: Absolute Lymphocytes (CBC) 0.3 K/uL (0.7-4.9); Hematocrit 47.1 % (39.6-49.0); Lymphocytes % 1.6 % (15.3-44.8); MPV 7.4 fL (7.6-11.3); RBC Red Blood Cell Count 5.29 M/uL (4.33-5.43)
[2020-12-05 08:10] LABS: Albumin 2.5 g/dL (3.4-5.0); Bilirubin Total 0.6 mg/dL (0.2-1.0); Magnesium 2.2 mg/dL (1.8-2.4); Potassium 4.2 mmol/L (3.5-5.1); Protein, Total 6.8 g/dL (6.4-8.2)
[2020-12-05] MEDS: VITAMIN D 1000 UNIT TAB PO SCH (08:25)
[2020-12-05] MEDS: ENOXAPARIN 40 MG/0.4 ML SQ SCH ×2 (08:25→19:39)
[2020-12-05] MEDS: ZINC SULFATE 220 MG CAP PO SCH (08:26)
[2020-12-05] MEDS: ASPIRIN EC 81 MG TAB PO SCH (08:26)
[2020-12-05] MEDS: ASCORBIC ACID 500 MG TABLET PO SCH ×4 (08:26→19:39)
[2020-12-05] MEDS: lisinopriL 10 MG TAB PO SCH (08:26)
[2020-12-05] MEDS: METHYLPREDNISOLONE 40 MG INJ IV SCH ×3 (08:27→19:38)
[2020-12-05] MEDS: THIAMINE HCL 100 MG TABLET PO SCH (08:27)
[2020-12-05] MEDS: atenoloL 50 MG TAB PO SCH (08:35)
[2020-12-05] MEDS: BARICITINIB 2 MG TABLET PO SCH (10:12)
--- NOTE | 2020-12-05 15:47 | P.PN ---
Subjective Date of Service: 12/05/20 Primary Care Provider: [facility] Chief Complaint: COVID-19 pneumonia Patient requiring 5-6 L of oxygen by nasal canula. Also using BiPAP Physical Examination - Vital Signs Temperature: 97.8 F Blood Pressure: 123/72 Pulse: 75 Respirations: 26 Pulse Ox (%): 96 - Physical Exam General: In no apparent distress, Oriented x3, Obese HEENT: Mucous membr. moist/pink Neck: JVD not distended Respiratory: Other (Nonlabored breathing) Cardiovascular: Regular rate/rhythm, Normal S1 S2 Gastrointestinal: Soft and benign, Non-distended Musculoskeletal: No swelling Neurological: Normal strength at 5/5 x4 extr Assessment And Plan - Current Problems (Diagnosis) (1) Pneumonia due to 2019 novel coronavirus Current Visit: Yes Status: Acute (2) Acute respiratory failure with hypoxia Current Visit: Yes Status: Acute (3) Morbid obesity Current Visit: Yes Status: Acute - Plan Continue IV steroid, vitamin supplementation, bronchodilators p.r.n.. Patient on Ivermectin Continue Baracitinib Pulmonary-Dr. León is following. Francisco Javier for DVT prophylaxis. Wean oxygen as tolerated BiPAP p.r.n. Monitor inflammatory markers.
[2020-12-05] MEDS: ATORVASTATIN 20 MG TAB PO SCH (19:39)
[2020-12-05] MEDS: TRAZODONE 50 MG TABLET PO SCH (19:39)
[2020-12-05] MEDS: ZOLPIDEM TARTRATE 5 MG TABLET PO PRN (22:26)
[2020-12-06] MEDS ORDERED: LORazepam 2 MG/ML VIAL IV ONE (02:32)
[2020-12-06] MEDS ORDERED: atenoloL 25 MG TAB ONE (07:40)
[2020-12-06] MEDS: ENOXAPARIN 40 MG/0.4 ML SQ SCH ×2 (07:59→19:52)
[2020-12-06] MEDS: VITAMIN D 1000 UNIT TAB PO SCH (07:59)
[2020-12-06] MEDS: ZINC SULFATE 220 MG CAP PO SCH (08:00)
[2020-12-06] MEDS: ASCORBIC ACID 500 MG TABLET PO SCH ×4 (08:00→19:52)
[2020-12-06] MEDS: ASPIRIN EC 81 MG TAB PO SCH (08:00)
[2020-12-06] MEDS: METHYLPREDNISOLONE 40 MG INJ IV SCH ×3 (08:00→19:52)
[2020-12-06] MEDS: THIAMINE HCL 100 MG TABLET PO SCH (08:00)
[2020-12-06] MEDS: BARICITINIB 2 MG TABLET PO SCH (08:04)
[2020-12-06] MEDS: atenoloL 50 MG TAB PO SCH (09:00)
[2020-12-06] MEDS: lisinopriL 10 MG TAB PO SCH (09:08)
--- NOTE | 2020-12-06 15:49 | P.PN ---
Subjective Date of Service: 12/06/20 Primary Care Provider: [facility] Chief Complaint: COVID-19 pneumonia Patient is currently on high-flow. He reports shortness of breath. Physical Examination - Vital Signs Temperature: 98 F Blood Pressure: 132/72 Pulse: 86 Respirations: 18 Pulse Ox (%): 93 - Physical Exam General: Alert, In no apparent distress HEENT: Other (HNFC) Neck: JVD not distended Respiratory: Other (Nonlabored breathing) Cardiovascular: Regular rate/rhythm, Normal S1 S2 Gastrointestinal: Soft and benign, Non-distended Musculoskeletal: No swelling Neurological: Normal strength at 5/5 x4 extr - Studies Microbiology Data (last 24 hrs): 12/01/20 14:45 Blood - Blood Aerobic Blood Culture - Final No growth in 5 days. 12/01/20 14:45 Blood - Blood Anaerobic Blood Culture - Final No growth in 5 days. 12/01/20 14:45 Blood - Blood Aerobic Blood Culture - Final No growth in 5 days. 12/01/20 14:45 Blood - Blood Anaerobic Blood Culture - Final No growth in 5 days. Assessment And Plan - Current Problems (Diagnosis) (1) Pneumonia due to 2019 novel coronavirus Current Visit: Yes Status: Acute (2) Acute respiratory failure with hypoxia Current Visit: Yes Status: Acute (3) Morbid obesity Current Visit: Yes Status: Acute - Plan Continue IV steroid, vitamin supplementation, bronchodilators p.r.n.. Patient on Ivermectin Continue Baracitinib Pulmonary-Dr. León is following. Francisco Javier for DVT prophylaxis. Wean oxygen as tolerated BiPAP p.r.n. Monitor inflammatory markers.
[2020-12-06] MEDS: TRAZODONE 50 MG TABLET PO SCH (19:52)
[2020-12-06] MEDS: ZOLPIDEM TARTRATE 5 MG TABLET PO PRN (19:52)
[2020-12-06] MEDS: ATORVASTATIN 20 MG TAB PO SCH (19:52)
[2020-12-07 07:05] LABS: Absolute Lymphocytes (CBC) 0.2 K/uL (0.7-4.9); Basophils % 0.3 % (0-1.3); Hematocrit 47.3 % (39.6-49.0); Lymphocytes % 0.8 % (15.3-44.8); MPV 7.3 fL (7.6-11.3); RBC Red Blood Cell Count 5.32 M/uL (4.33-5.43)
[2020-12-07 07:26] LABS: C-Reactive Protein 35.9 mg/L (<3.00); Ferritin 1386.6 ng/mL (26-388); Magnesium 2.4 mg/dL (1.8-2.4); Potassium 3.9 mmol/L (3.5-5.1)
--- NOTE | 2020-12-07 07:35 | RAD REPORT ---
EXAM DESCRIPTION: RAD - Chest Single View - 12/07/2020 7:21 am CLINICAL HISTORY: SOB COMPARISON: Chest Pa And Lat (2 Views) dated 12/01/2020; Chest For Pe Angio dated 12/01/2020 FINDINGS: Widespread interstitial and airspace disease bilaterally. This may reflect multifocal pneu monia and/or edema. Cardiomegaly.No acute osseous abnormality. No significant pleural effusions or pn eumothorax. IMPRESSION: Worsened aeration of the lungs compared with 12/01/2020. Question superimposed edema david celestina worsened infection/ARDS.
[2020-12-07] MEDS ORDERED: atenoloL 25 MG TAB ONE (07:41)
[2020-12-07] MEDS: VITAMIN D 1000 UNIT TAB PO SCH (07:41)
[2020-12-07] MEDS: ENOXAPARIN 40 MG/0.4 ML SQ SCH ×2 (07:41→19:49)
[2020-12-07] MEDS: METHYLPREDNISOLONE 40 MG INJ IV SCH ×3 (07:41→19:49)
[2020-12-07] MEDS: THIAMINE HCL 100 MG TABLET PO SCH (07:42)
[2020-12-07] MEDS: ZINC SULFATE 220 MG CAP PO SCH (07:42)
[2020-12-07] MEDS: atenoloL 50 MG TAB PO SCH (07:43)
[2020-12-07] MEDS: ASPIRIN EC 81 MG TAB PO SCH (07:43)
[2020-12-07] MEDS: ASCORBIC ACID 500 MG TABLET PO SCH ×4 (07:43→19:50)
[2020-12-07] MEDS: lisinopriL 10 MG TAB PO SCH (07:44)
[2020-12-07] MEDS: BARICITINIB 2 MG TABLET PO SCH (07:44)
[2020-12-07 08:24] LABS: Platelet Estimate ADEQ
[2020-12-07 08:25] LABS: Blood Morphology Comment NOT SEEN (NOT SEEN); Platelets, Giant NOTED
[2020-12-07] MEDS ORDERED: POTASSIUM CL SA 10 MEQ TAB PO ONE (11:25)
--- NOTE | 2020-12-07 15:47 | P.PN ---
Subjective Date of Service: 12/07/20 Primary Care Provider: [facility] Chief Complaint: COVID-19 pneumonia Subjective: Other (pt reports feeling like he is breathing a little easier this morning. no new complaints, still SOB/ANGUIANO, on high levels of O2. CXR ordered for today, inflammatory markers elevated) Review of Systems 10-point ROS is otherwise unremarkable Physical Examination - Vital Signs Temperature: 97.6 F Blood Pressure: 108/61 Pulse: 88 Respirations: 24 Pulse Ox (%): 92 - Studies Microbiology Data (last 24 hrs): 12/01/20 14:45 Blood - Blood Aerobic Blood Culture - Final No growth in 5 days. 12/01/20 14:45 Blood - Blood Anaerobic Blood Culture - Final No growth in 5 days. 12/01/20 14:45 Blood - Blood Aerobic Blood Culture - Final No growth in 5 days. 12/01/20 14:45 Blood - Blood Anaerobic Blood Culture - Final No growth in 5 days. Assessment & Plan Physician Review Additional Text: Physical Exam General: Alert, In no apparent distress, laying on side HEENT: normal conjunctiva, sclera anicteric Respiratory: nonlabored respirations on HFNC 100% Fio2 Cardiovascular: Regular rate/rhythm, Normal S1 S2 Gastrointestinal: Soft, nontender, non-distended Problem List acute hypoxemic respiratory failure secondary to COVID-19 pneumonia Morbid obesity Continue IV steroids, vitamin supplementation, bronchodilators p.r.n.. received ivermectin Continue Baracitinib Pulmonary-Dr. León is following. Francisco Javier for DVT prophylaxis. Wean oxygen as tolerated BiPAP p.r.n. inflammatory markers worsened, pt reports feeling a little better CXR ordered for today VTE eliqius Code: full Dispo: anticipate hospitalization > 2 days Time Spent Managing Pts Care (In Minutes): 35
[2020-12-07] MEDS: ATORVASTATIN 20 MG TAB PO SCH (19:50)
[2020-12-07] MEDS: TRAZODONE 50 MG TABLET PO SCH (19:50)
[2020-12-07] MEDS: ZOLPIDEM TARTRATE 5 MG TABLET PO PRN (19:50)
[2020-12-08 04:31] LABS: Absolute Lymphocytes (CBC) 0.1 K/uL (0.7-4.9); Basophils % 0.3 % (0-1.3); Hematocrit 49.2 % (39.6-49.0); Lymphocytes % 0.6 % (15.3-44.8); MPV 7.4 fL (7.6-11.3); RBC Red Blood Cell Count 5.47 M/uL (4.33-5.43)
[2020-12-08 04:42] LABS: C-Reactive Protein 38.3 mg/L (<3.00); Ferritin 1634.9 ng/mL (26-388); Potassium 4.7 mmol/L (3.5-5.1)
[2020-12-08 05:19] LABS: Arterial Blood Carboxyhemoglob 0.8 % (0-1.5); Blood Gas Oxyhemoglobin 89.8 % (94-97); Blood O2 Saturation 91.5 % (92-98.5)
[2020-12-08] MEDS ORDERED: atenoloL 25 MG TAB ONE (07:31)
[2020-12-08] MEDS: ZINC SULFATE 220 MG CAP PO SCH (07:44)
[2020-12-08] MEDS: VITAMIN D 1000 UNIT TAB PO SCH (07:44)
[2020-12-08] MEDS: BARICITINIB 2 MG TABLET PO SCH (07:44)
[2020-12-08] MEDS: atenoloL 50 MG TAB PO SCH (07:45)
[2020-12-08] MEDS: METHYLPREDNISOLONE 40 MG INJ IV SCH ×3 (07:45→20:34)
[2020-12-08] MEDS: lisinopriL 10 MG TAB PO SCH (07:46)
[2020-12-08] MEDS: ASCORBIC ACID 500 MG TABLET PO SCH ×4 (07:46→20:34)
[2020-12-08] MEDS: ASPIRIN EC 81 MG TAB PO SCH (07:46)
[2020-12-08] MEDS: THIAMINE HCL 100 MG TABLET PO SCH (07:46)
[2020-12-08] MEDS: ENOXAPARIN 40 MG/0.4 ML SQ SCH ×2 (07:46→20:36)
[2020-12-08] MEDS: ACETAMINOPHEN 500 MG TAB PO PRN (08:00)
[2020-12-08] MEDS: BENZONATATE 100 MG CAP PO PRN ×2 (09:11→20:35)
--- NOTE | 2020-12-08 12:56 | P.PN ---
Subjective Date of Service: 12/08/20 Primary Care Provider: [facility] Chief Complaint: COVID-19 pneumonia Subjective: No new changes (feels about the same, feels like he can take in more volume of air. still SOB/ANGUIANO, requiring high levels of oxygen) Review of Systems 10-point ROS is otherwise unremarkable Physical Examination - Vital Signs Temperature: 97.6 F Blood Pressure: 142/79 Pulse: 92 Respirations: 23 Pulse Ox (%): 90 Assessment & Plan Physician Review Additional Text: Physical Exam General: Alert, In no apparent distress HEENT: normal conjunctiva, sclera anicteric Respiratory: nonlabored respirations on HFNC Cardiovascular: Regular rate/rhythm, Normal S1 S2 Gastrointestinal: Soft, nontender, non-distended Problem List acute hypoxemic respiratory failure secondary to COVID-19 pneumonia Morbid obesity Continue IV steroids, vitamin supplementation, bronchodilators p.r.n.. received ivermectin Continue Baracitinib Pulmonary-Dr. León is following. Francisco Javier for DVT prophylaxis. Wean oxygen as tolerated inflammatory markers remain elevated ABG ordered for this morning VTE eliqius Code: full Dispo: anticipate hospitalization > 2 days guarded prognosis Time Spent Managing Pts Care (In Minutes): 35
[2020-12-08] MEDS: ZOLPIDEM TARTRATE 5 MG TABLET PO PRN (20:34)
[2020-12-08] MEDS: ATORVASTATIN 20 MG TAB PO SCH (20:35)
[2020-12-08] MEDS: TRAZODONE 50 MG TABLET PO SCH (20:36)
[2020-12-09 05:06] LABS: Absolute Lymphocytes (CBC) 0.2 K/uL (0.7-4.9); Basophils % 0.1 % (0-1.3); Hematocrit 48.5 % (39.6-49.0); Lymphocytes % 0.7 % (15.3-44.8); MPV 7.3 fL (7.6-11.3)
[2020-12-09 05:23] LABS: Albumin 2.3 g/dL (3.4-5.0); Bilirubin Total 0.6 mg/dL (0.2-1.0); C-Reactive Protein 36.5 mg/L (<3.00); Ferritin 1992.7 ng/mL (26-388); Magnesium 2.3 mg/dL (1.8-2.4); Potassium 4.5 mmol/L (3.5-5.1); Protein, Total 6.5 g/dL (6.4-8.2)
[2020-12-09] MEDS ORDERED: atenoloL 25 MG TAB ONE (07:26)
--- NOTE | 2020-12-09 08:26 | P.PN ---
Subjective Date of Service: 12/09/20 Primary Care Provider: [facility] Chief Complaint: COVID-19 pneumonia Subjective: No new changes (feels about the same, still on high levels of o2 supplementation, reports appetite is ok, eating most of his food, getting up to chair during day.) Review of Systems 10-point ROS is otherwise unremarkable Physical Examination - Vital Signs Temperature: 97.4 F Blood Pressure: 141/78 Pulse: 107 Respirations: 28 Pulse Ox (%): 75 Assessment & Plan Physician Review Additional Text: Physical Exam General: Alert, In no apparent distress. appears fatigued HEENT: normal conjunctiva, sclera anicteric Respiratory: nonlabored respirations on BIPAP Cardiovascular: Regular rate/rhythm, Normal S1 S2 Gastrointestinal: Soft, nontender, non-distended Ext: trace b/l lower extremity edema Skin: no rash Problem List acute hypoxemic respiratory failure secondary to COVID-19 pneumonia Morbid obesity chronic atrial fibrillation, not on anticoagulation Continue IV steroids, vitamin supplementation, bronchodilators p.r.n.. received ivermectin Continue Baracitinib Pulmonary-Dr. León is following. Josiqukade for DVT prophylaxis. Wean oxygen as tolerated inflammatory markers remain elevated will give 20mg IV lasix x1 today pt with h/o afib, rate has been controlled on home beta veto reports unable to afford anticoag at home and has not been taking, lovenox changed to eliquis VTE eliqius Code: full Dispo: anticipate hospitalization > 2 days guarded prognosis Time Spent Managing Pts Care (In Minutes): 40
[2020-12-09] MEDS: BARICITINIB 2 MG TABLET PO SCH (08:28)
[2020-12-09] MEDS: THIAMINE HCL 100 MG TABLET PO SCH (08:28)
[2020-12-09] MEDS: atenoloL 50 MG TAB PO SCH (08:28)
[2020-12-09] MEDS: ASCORBIC ACID 500 MG TABLET PO SCH ×4 (08:29→20:11)
[2020-12-09] MEDS: ZINC SULFATE 220 MG CAP PO SCH (08:29)
[2020-12-09] MEDS: lisinopriL 10 MG TAB PO SCH (08:29)
[2020-12-09] MEDS: METHYLPREDNISOLONE 40 MG INJ IV SCH ×3 (08:29→20:10)
[2020-12-09] MEDS: VITAMIN D 1000 UNIT TAB PO SCH (08:29)
[2020-12-09] MEDS: ASPIRIN EC 81 MG TAB PO SCH (08:29)
[2020-12-09] MEDS: APIXABAN 5 MG TABLET PO SCH ×2 (08:45→20:11)
[2020-12-09] MEDS: BENZONATATE 100 MG CAP PO PRN ×2 (08:45→17:31)
[2020-12-09] MEDS ORDERED: FUROSEMIDE 20 MG/ 2ML VIAL IV ONE (12:49)
--- NOTE | 2020-12-09 15:24 | P.PN ---
Subjective Date of Service: 12/09/20 Primary Care Provider: Flako pierre Chief Complaint: COVID-19 pneumonia Still very hypoxic/ on BIPAP/ Feeling better Review of Systems Respiratory: Shortness of Breath Physical Examination - Vital Signs Temperature: 97.4 F Blood Pressure: 144/82 Pulse: 84 Respirations: 28 Pulse Ox (%): 75 - Physical Exam General: Alert, In no apparent distress, Oriented x3 Assessment & Plan - Problems (Diagnosis) (1) Pneumonia due to 2019 novel coronavirus Current Visit: Yes Status: Acute Plan: No change still on high concentration of Fio2/ Labs CT and med reviewed
[2020-12-09] MEDS: ZOLPIDEM TARTRATE 5 MG TABLET PO PRN (20:11)
[2020-12-09] MEDS: TRAZODONE 50 MG TABLET PO SCH (20:11)
[2020-12-09] MEDS: ATORVASTATIN 20 MG TAB PO SCH (20:11)
[2020-12-10] MEDS ORDERED: DOCUSATE NA 100 MG CAP PO PRN (03:40)
[2020-12-10 04:27] LABS: Absolute Lymphocytes (CBC) 0.1 K/uL (0.7-4.9); Basophils % 0.5 % (0-1.3); Hematocrit 51.2 % (39.6-49.0); Lymphocytes % 0.6 % (15.3-44.8); MPV 7.4 fL (7.6-11.3); RBC Red Blood Cell Count 5.73 M/uL (4.33-5.43)
[2020-12-10 05:01] LABS: Albumin 2.3 g/dL (3.4-5.0); Bilirubin Total 0.7 mg/dL (0.2-1.0); Ferritin 2569.2 ng/mL (26-388); Magnesium 2.3 mg/dL (1.8-2.4); Potassium 4.7 mmol/L (3.5-5.1); Protein, Total 6.9 g/dL (6.4-8.2)
[2020-12-10 05:17] LABS: Platelet Estimate INCR
[2020-12-10 05:18] LABS: Blood Morphology Comment NOT SEEN (NOT SEEN)
[2020-12-10] MEDS: METHYLPREDNISOLONE 40 MG INJ IV SCH ×3 (08:08→21:01)
[2020-12-10] MEDS: ASPIRIN EC 81 MG TAB PO SCH (08:09)
[2020-12-10] MEDS: THIAMINE HCL 100 MG TABLET PO SCH (08:09)
[2020-12-10] MEDS: lisinopriL 10 MG TAB PO SCH (08:09)
[2020-12-10] MEDS: ASCORBIC ACID 500 MG TABLET PO SCH ×4 (08:09→20:56)
[2020-12-10] MEDS: VITAMIN D 1000 UNIT TAB PO SCH (08:09)
[2020-12-10] MEDS: ZINC SULFATE 220 MG CAP PO SCH (08:09)
[2020-12-10] MEDS: APIXABAN 5 MG TABLET PO SCH ×2 (08:10→20:56)
[2020-12-10] MEDS: atenoloL 50 MG TAB PO SCH (08:10)
[2020-12-10] MEDS: BARICITINIB 2 MG TABLET PO SCH (08:10)
[2020-12-10] MEDS ORDERED: atenoloL 25 MG TAB ONE (08:24)
--- NOTE | 2020-12-10 08:57 | P.PN ---
Subjective Date of Service: 12/10/20 Primary Care Provider: [facility] Chief Complaint: COVID-19 pneumonia Subjective: Other (feels better today, had rough day yesterday. inflammatory markers significantly higher today, on 80% FIO2) Review of Systems 10-point ROS is otherwise unremarkable Physical Examination - Vital Signs Temperature: 97.3 F Blood Pressure: 166/87 Pulse: 101 Respirations: 28 Pulse Ox (%): 90 Assessment & Plan Physician Review Additional Text: Physical Exam General: Alert, In no apparent distress. HEENT: normal conjunctiva, sclera anicteric Respiratory: tachypneic on BIPAP, shallow respirations Cardiovascular: Irregularly irregular rhythm, heart rate: 20q157 Gastrointestinal: Soft, nontender, non-distended Ext: trace b/l lower extremity edema Skin: no rash Problem List acute hypoxemic respiratory failure secondary to COVID-19 pneumonia Morbid obesity chronic atrial fibrillation, not on anticoagulation Continue IV steroids, vitamin supplementation, bronchodilators p.r.n.. received ivermectin, Continue Baracitinib Pulmonary-Dr. León is following. Eliquis for DVT prophylaxis. Wean oxygen as tolerated inflammatory markers - worsening s/p IV lasix x1 on 12/09 pt with h/o afib, rate has been controlled on home beta veto reports unable to afford anticoag at home and has not been taking, lovenox changed to eliquis on 12/09 VTE eliqius Code: full Dispo: anticipate hospitalization > 2 days guarded prognosis family updated Time Spent Managing Pts Care (In Minutes): 45
--- NOTE | 2020-12-10 09:27 | RAD REPORT ---
EXAM DESCRIPTION: Marge Single View12/10/2020 8:57 am CLINICAL HISTORY: Shortness of breath COMPARISON: December 07, 2020 FINDINGS: Moderate to marked bilateral pulmonary opacities without significant change. Heart remains enlarged IMPRESSION: Moderate to marked bilateral pulmonary opacities without significant change likely pneu monia
[2020-12-10 11:21] LABS: Blood Gas Oxyhemoglobin 91.7 % (94-97); Blood O2 Saturation 93.7 % (92-98.5)
[2020-12-10] MEDS: TRAZODONE 50 MG TABLET PO SCH (20:56)
[2020-12-10] MEDS: ATORVASTATIN 20 MG TAB PO SCH (20:57)
[2020-12-11 04:17] LABS: Absolute Lymphocytes (CBC) 0.1 K/uL (0.7-4.9); Basophils % 0.3 % (0-1.3); Hematocrit 51.1 % (39.6-49.0); Lymphocytes % 0.5 % (15.3-44.8); MPV 7.4 fL (7.6-11.3); RBC Red Blood Cell Count 5.69 M/uL (4.33-5.43)
[2020-12-11 05:06] LABS: Ferritin 3412.3 ng/mL (26-388); Potassium 5.3 mmol/L (3.5-5.1)
--- NOTE | 2020-12-11 07:38 | P.PN ---
Subjective Date of Service: 12/11/20 Primary Care Provider: [facility] Chief Complaint: COVID-19 pneumonia Subjective: No new changes (reports "rough" day yesterday with SOB, anxiety, not able to eat much due to hypoxia. agreeable to dobhoff) Review of Systems 10-point ROS is otherwise unremarkable Physical Examination - Vital Signs Temperature: 98.5 F Blood Pressure: 123/69 Pulse: 106 Respirations: 24 Pulse Ox (%): 85 Assessment & Plan Physician Review Additional Text: Physical Exam General: Alert, fatigued appearing HEENT: normal conjunctiva, sclera anicteric Respiratory: tachypneic on BIPAP, shallow respirations Cardiovascular: Irregularly irregular rhythm, heart rate: [id number] Gastrointestinal: Soft, nontender, non-distended Ext: trace b/l lower extremity edema Skin: no rash Problem List acute hypoxemic respiratory failure secondary to COVID-19 pneumonia Morbid obesity chronic atrial fibrillation, not on anticoagulation Continue IV steroids, vitamin supplementation, bronchodilators p.r.n.. received ivermectin, Continue Baracitinib Pulmonary-Dr. León is following Francisco Javier for DVT prophylaxis Requiring 100% FiO2 on BiPAP, oxygen saturation at 90% Inflammatory markers continue to worsen Guarded prognosis Discussed CODE STATUS with the patient, full code, okay with intubation if needed as a last resort trial of morphine for anxiety / respirations Patient unable to eat much of his meals over the past 2 days, but has been able to drink 2 ensures per meal Discussed possibility of Dobbhoff need to ensure adequate nutrition and avoid hypoxia Patient agreeable if needed VTE: eliqius Code: full Dispo: anticipate hospitalization > 2 days guarded prognosis Transferred to the ICU for close monitoring today Time Spent Managing Pts Care (In Minutes): 40
[2020-12-11] MEDS: BARICITINIB 2 MG TABLET PO SCH (07:50)
[2020-12-11] MEDS: VITAMIN D 1000 UNIT TAB PO SCH (07:50)
[2020-12-11] MEDS: ASCORBIC ACID 500 MG TABLET PO SCH ×4 (07:51→21:22)
[2020-12-11] MEDS: atenoloL 50 MG TAB PO SCH (07:51)
[2020-12-11] MEDS: THIAMINE HCL 100 MG TABLET PO SCH (07:52)
[2020-12-11] MEDS: APIXABAN 5 MG TABLET PO SCH ×2 (07:52→21:22)
[2020-12-11] MEDS: ZINC SULFATE 220 MG CAP PO SCH (07:52)
[2020-12-11] MEDS: lisinopriL 10 MG TAB PO SCH (07:53)
[2020-12-11] MEDS: ASPIRIN EC 81 MG TAB PO SCH (07:57)
[2020-12-11] MEDS: METHYLPREDNISOLONE 40 MG INJ IV SCH ×3 (07:58→21:21)
[2020-12-11] MEDS ORDERED: atenoloL 25 MG TAB ONE (08:05)
[2020-12-11] MEDS: MORPHINE 2 MG/ML SYR IV PRN ×4 (09:26→22:39)
[2020-12-11] MEDS: ENSURE HIGH PROTEIN 237 ML CAN PO SCH (21:00)
[2020-12-11] MEDS: TRAZODONE 50 MG TABLET PO SCH (21:21)
[2020-12-11] MEDS: ATORVASTATIN 20 MG TAB PO SCH (21:22)
[2020-12-12] MEDS: MORPHINE 2 MG/ML SYR IV PRN ×2 (03:47→10:13)
[2020-12-12] MEDS: BENZONATATE 100 MG CAP PO PRN (03:48)
[2020-12-12 04:26] LABS: Basophils % 0.2 % (0-1.3); Hematocrit 50.8 % (39.6-49.0); Lymphocytes % 0.1 % (15.3-44.8); MPV 7.8 fL (7.6-11.3); RBC Red Blood Cell Count 5.57 M/uL (4.33-5.43)
[2020-12-12 04:58] LABS: Bilirubin Total 0.9 mg/dL (0.2-1.0); Ferritin 4521.3 ng/mL (26-388); Magnesium 2.4 mg/dL (1.8-2.4)
[2020-12-12 06:10] LABS: Arterial Blood Carboxyhemoglob 1.1 % (0-1.5); Blood Gas Oxyhemoglobin 88.8 % (94-97)
[2020-12-12] MEDS ORDERED: Meropenem 1 GM/100 ML BAG IV SCH (06:30)
[2020-12-12] MEDS: VITAMIN D 1000 UNIT TAB PO SCH (08:06)
[2020-12-12] MEDS: ASPIRIN EC 81 MG TAB PO SCH (08:06)
[2020-12-12] MEDS: ZINC SULFATE 220 MG CAP PO SCH (08:06)
[2020-12-12] MEDS: ASCORBIC ACID 500 MG TABLET PO SCH ×4 (08:06→21:05)
[2020-12-12] MEDS: atenoloL 50 MG TAB PO SCH (08:07)
[2020-12-12] MEDS: THIAMINE HCL 100 MG TABLET PO SCH (08:08)
[2020-12-12] MEDS: lisinopriL 10 MG TAB PO SCH (08:08)
[2020-12-12] MEDS: APIXABAN 5 MG TABLET PO SCH ×2 (08:08→21:05)
[2020-12-12] MEDS: METHYLPREDNISOLONE 40 MG INJ IV SCH ×3 (08:09→21:05)
[2020-12-12] MEDS: ENSURE HIGH PROTEIN 237 ML CAN PO SCH ×2 (08:09→21:00)
[2020-12-12] MEDS: BARICITINIB 2 MG TABLET PO SCH (08:12)
[2020-12-12] MEDS ORDERED: atenoloL 25 MG TAB ONE (08:25)
[2020-12-12] MEDS: Meropenem 1 GM/100 ML BAG IV SCH ×2 (09:37→17:25)
--- NOTE | 2020-12-12 10:19 | RAD REPORT ---
EXAM DESCRIPTION: RAD - Chest Single View - 12/12/2020 9:56 am CLINICAL HISTORY: f/u covid, more hypoxic COMPARISON: Chest Single View dated 12/10/2020; Chest Single View dated 12/07/2020; Chest Pa And Lat (2 Views) dated 12/01/2020; Chest For Pe Angio dated 12/01/2020 FINDINGS: Unchanged widespread bilateral airspace disease Cardiomegaly.No acute osseous abnormality. No significant pleural effusions or pneumothorax. IMPRESSION: Widespread bilateral airspace disease likely reflecting multifocal pneumonia though supe rimposed edema cannot be excluded. The appearance is similar to 12/10/2020.
[2020-12-12] MEDS ORDERED: METOPROLOL TARTRATE 5 MG/5 ML INJ IV STA (10:23)
[2020-12-12] MEDS ORDERED: RSI MEDICATION KIT IV ONE (10:47)
[2020-12-12] MEDS ORDERED: propofoL 1,000 MG/100 ML VIAL IV ONE (10:48)
[2020-12-12] MEDS ORDERED: NA CHLORIDE 0.9% 1,000 ML ONE ×2 (10:58→18:08)
--- NOTE | 2020-12-12 11:01 | P.PN ---
Subjective Date of Service: 12/12/20 Primary Care Provider: Flako pierre Chief Complaint: COVID-19 pneumonia Subjective: Worsening Not doing well getting tired/ Getting intubated Review of Systems is unable to be obtained Physical Examination - Vital Signs Temperature: 99.9 F Blood Pressure: 139/85 Pulse: 134 Respirations: 33 Pulse Ox (%): 89 Assessment & Plan - Problems (Diagnosis) (1) Pneumonia due to 2019 novel coronavirus Current Visit: Yes Status: Acute Plan: Worseined, going to be intubated/ Prognosis poor/Start tube feeds/ Cultures/on steroids and Barcitnib/ labs reviewed/ vent protocol
[2020-12-12] MEDS ORDERED: SUCCINYLCHOLINE 20 MG/ML (10 ML) IV ONE (11:24)
[2020-12-12] MEDS ORDERED: HALOPERIDOL LACT 5 MG/ML INJ IV PRN (11:29)
[2020-12-12] MEDS ORDERED: MIDAZOLAM HCL 2 MG/2 ML INJ IV PRN (11:29)
[2020-12-12] MEDS ORDERED: CISATRACURIUM INJECTION 2 MG/ML (10 ML Vial) IV ONE (11:44)
[2020-12-12] MEDS: FENTANYL CITR 100 MCG/2 ML IV PRN ×2 (11:56→21:04)
--- NOTE | 2020-12-12 12:42 | RAD REPORT ---
EXAM DESCRIPTION: RAD - Chest Single View - 12/12/2020 11:58 am CLINICAL HISTORY: respiratory tube placement COMPARISON: Chest Single View dated 12/12/2020; Chest Single View dated 12/10/2020; Chest Single View da michael 12/07/2020; Chest Pa And Lat (2 Views) dated 12/01/2020 FINDINGS: Interval placement endotracheal tube which is approximately 2 centimeters above the nancy . Enteric tube noted. Tip is not visualized though does go below the diaphragm. Cardiomegaly.Similar widespread bilateral airspace disease.. No significant pleural effusions or pneumothorax. IMPRESSION: The endotracheal tube is in satisfactory position above the nancy. Enteric tube below t he diaphragm. No significant change in aeration of the lungs compared with the radiograph from 2 hour s prior.
[2020-12-12] MEDS ORDERED: CISATRACURIUM BESYLATE 40 MG in NA CHLORIDE 0.9% 80 ML IV PRN (12:45)
[2020-12-12] MEDS: propofoL 1,000 MG/100 ML VIAL IV PRN ×3 (13:40→22:42)
[2020-12-12] MEDS ORDERED: ETOMIDATE 20 MG/10 ML VIAL IV ONE (13:52)
[2020-12-12] MEDS: NOREPINEPHRINE 8 MG in D5W 500 ML IV PRN (15:45)
--- NOTE | 2020-12-12 17:09 | P.PN ---
Subjective Date of Service: 12/12/20 Primary Care Provider: [facility] Chief Complaint: COVID-19 pneumonia Subjective: Worsening (patient worsening, more tired, tachypneic, on 100% FIO2, states he is getting tired out, asked to be intubated. spoke with family.) Review of Systems 10-point ROS is otherwise unremarkable Physical Examination - Vital Signs Temperature: 98.2 F Blood Pressure: 70/50 Pulse: 108 Respirations: 24 Pulse Ox (%): 86 Assessment & Plan Physician Review Additional Text: Physical Exam General: Alert, moderate distress, tired/fatigued HEENT: normal conjunctiva, sclera anicteric Respiratory: tachypneic, labored respirations on BIPAP Cardiovascular: Irregularly irregular rhythm, heart rate: 130s Gastrointestinal: mild distention Ext: trace b/l lower extremity edema Skin: no rash Problem List acute hypoxemic respiratory failure secondary to COVID-19 pneumonia Morbid obesity chronic atrial fibrillation, not on anticoagulation Continue IV steroids, vitamin supplementation, bronchodilators p.r.n.. received ivermectin, Continue Baracitinib Pulmonary-Dr. León is following Francisco Javier for DVT prophylaxis worsening, anesthesia called, patient s/p intubation / very sensitive to sedation, drops BP, might need pressors HR improved after intubation inflammatory markers rising concern for bacterial superinfection -added meropenem, vanc, cultures obtained paredes placed patient will need PICC line / central line OG tube placed, to suction for now, patient had lots of air VTE: eliqius Code: full Dispo: intubated/sedated, poor prognosis family updated Time Spent Managing Pts Care (In Minutes): 60
[2020-12-12] MEDS: CISATRACURIUM BESYLATE 100 MG in NA CHLORIDE 0.9% 200 ML IV PRN (17:15)
--- NOTE | 2020-12-12 17:34 | RAD REPORT ---
EXAM DESCRIPTION: RAD - Chest Single View - 12/12/2020 5:05 pm CLINICAL HISTORY: PICC line insertion COMPARISON: Chest Single View dated 12/12/2020; Chest Single View dated 12/12/2020; Chest Single View da michael 12/10/2020; Chest Single View dated 12/07/2020 FINDINGS: Interval placement of a right subclavian approach PICC. The tip is difficult to visualize due to underpenetration. The can be seen at least entering the SVC and not proceeding into the jugula r. IMPRESSION: Interval placement of a right subclavian approach PICC. The PICC enters the SVC but the tip is difficult to visualize
[2020-12-12] MEDS: NA CHLORIDE 0.9% 1,000 ML IV SCH (17:58)
[2020-12-12] MEDS ORDERED: VANCOMYCIN 3 GM in NA CHLORIDE 0.9% 500 ML IVPB ONE (18:00)
[2020-12-12] MEDS ORDERED: VANCOMYCIN 1 GM/VIAL ONE (18:08)
[2020-12-12] MEDS ORDERED: NA CHLORIDE 0.9% 500 ML ONE (18:08)
[2020-12-12] MEDS: TRAZODONE 50 MG TABLET PO SCH (21:00)
[2020-12-12] MEDS ORDERED: GLUCERNA 1.2 CAL 1,000 ML BOT RTH SCH (21:00)
[2020-12-12] MEDS ORDERED: VANCOMYCIN 1.5 GM in NA CHLORIDE 0.9% 500 ML IVPB SCH (21:00)
[2020-12-12] MEDS: FAMOTIDINE 20 MG/2 ML VIAL IV SCH (21:04)
[2020-12-12] MEDS: ATORVASTATIN 20 MG TAB PO SCH (21:05)
[2020-12-13] MEDS: Meropenem 1 GM/100 ML BAG IV SCH ×2 (00:10→08:01)
[2020-12-13 01:23] LABS: Urine Appearance TURBID (Clear); Urine Blood 3+ (Negative); Urine Color Red (Yellow); Urine Glucose NEGATIVE (Negative); Urine Protein 1+ (Negative)
[2020-12-13 01:41] LABS: Urine Microscopic Reflex ORDER UMIC
[2020-12-13 01:45] LABS: Urine Bilirubin 1+ (Negative)
[2020-12-13 02:55] LABS: Urine Bacteria 20-50 /HPF (NONE SEEN); Urine RBC >50 /HPF (NONE SEEN); Urine Urothelial Cells <5 /HPF (NONE SEEN)
[2020-12-13] MEDS: propofoL 1,000 MG/100 ML VIAL IV PRN ×6 (02:56→23:22)
[2020-12-13] MEDS: NOREPINEPHRINE 8 MG in D5W 500 ML IV PRN (04:44)
[2020-12-13] MEDS: CISATRACURIUM BESYLATE 100 MG in NA CHLORIDE 0.9% 200 ML IV PRN ×2 (04:45→20:26)
[2020-12-13] MEDS ORDERED: propofoL 1,000 MG/100 ML VIAL IV ONE (06:03)
--- NOTE | 2020-12-13 06:04 | P.PN ---
Subjective Date of Service: 12/13/20 Primary Care Provider: [facility] Chief Complaint: COVID-19 pneumonia Subjective: No new changes (Remains intubated/ventilated, off/on pressors), Other (intubated/sedated.) Review of Systems 10-point ROS is otherwise unremarkable Physical Examination - Vital Signs Temperature: 99.8 F Blood Pressure: 121/80 Pulse: 94 Respirations: 26 Pulse Ox (%): 89 Assessment & Plan Physician Review Additional Text: Physical Exam General: intubated / sedated HEENT: ETT in place Respiratory: ventilated, on 100% FIO2 Cardiovascular: Irregularly irregular rhythm, heart rate: 110s Gastrointestinal: mild distention Ext: trace b/l lower extremity edema Skin: no rash Problem List acute hypoxemic respiratory failure secondary to COVID-19 pneumonia Morbid obesity chronic atrial fibrillation, not on anticoagulation Continue IV steroids, vitamin supplementation, bronchodilators p.r.n.. received ivermectin, Continue Baracitinib Pulmonary-Dr. León is following Josikade for DVT prophylaxis worsened, anesthesia called, patient s/p intubation 12/12 very sensitive to sedation, drops BP, and needing pressors inflammatory markers rising concern for bacterial superinfection -added meropenem, vanc, cultures obtained on 12/12 paredes placed PICC line placed 12/12 OG tube placed initially placed to suction to remove air, start tube feeds VTE: eliqius Code: full Dispo: intubated/sedated, poor prognosis family updated Time Spent Managing Pts Care (In Minutes): 35
[2020-12-13 06:15] LABS: Absolute Lymphocytes (CBC) 0.1 K/uL (0.7-4.9); Basophils % 0.3 % (0-1.3); Hematocrit 43.3 % (39.6-49.0); Lymphocytes % 0.7 % (15.3-44.8); MPV 8.6 fL (7.6-11.3); RBC Red Blood Cell Count 4.73 M/uL (4.33-5.43)
[2020-12-13 06:36] LABS: ALT/SGPT 63 U/L (12-78); AST/SGOT 32 U/L (15-37); Albumin 1.6 g/dL (3.4-5.0); Alkaline Phosphatase 95 U/L (45-117); BUN Blood Urea Nitrogen 71 mg/dL (7-18); Bicarbonate 29 mmol/L (21-32); Bilirubin Total 0.7 mg/dL (0.2-1.0); Glucose Level 250 mg/dL (74-106); Magnesium 2.7 mg/dL (1.8-2.4); Potassium 4.9 mmol/L (3.5-5.1); Protein, Total 5.7 g/dL (6.4-8.2); Sodium Level 140 mmol/L (136-145)
[2020-12-13 06:38] LABS: Arterial Blood Carboxyhemoglob 1.1 % (0-1.5); Blood Gas Oxyhemoglobin 88.2 % (94-97); Blood O2 Saturation 90.4 % (92-98.5)
[2020-12-13 06:50] LABS: Ferritin > 2000.0 ng/mL (26-388)
[2020-12-13] MEDS: ZINC SULFATE 220 MG CAP PO SCH (07:59)
[2020-12-13] MEDS: VITAMIN D 1000 UNIT TAB PO SCH (07:59)
[2020-12-13] MEDS: ASPIRIN EC 81 MG TAB PO SCH (08:00)
[2020-12-13] MEDS: ASCORBIC ACID 500 MG TABLET PO SCH ×4 (08:00→20:32)
[2020-12-13] MEDS: THIAMINE HCL 100 MG TABLET PO SCH (08:00)
[2020-12-13] MEDS: BARICITINIB 2 MG TABLET PO SCH (08:00)
[2020-12-13] MEDS: METHYLPREDNISOLONE 40 MG INJ IV SCH ×2 (08:00→13:27)
[2020-12-13] MEDS: FAMOTIDINE 20 MG/2 ML VIAL IV SCH ×2 (08:01→20:32)
[2020-12-13] MEDS: ENSURE HIGH PROTEIN 237 ML CAN PO SCH (08:02)
[2020-12-13] MEDS: APIXABAN 5 MG TABLET PO SCH ×2 (08:02→20:32)
[2020-12-13] MEDS: lisinopriL 10 MG TAB PO SCH (08:02)
[2020-12-13] MEDS: atenoloL 50 MG TAB PO SCH (08:03)
--- NOTE | 2020-12-13 08:06 | RAD REPORT ---
EXAM DESCRIPTION: Marge Single View12/13/2020 7:11 am CLINICAL HISTORY: Shortness of breath COMPARISON: December 10, 2020 FINDINGS: Tip of an endotracheal tube not well seen but probably 1 centimeter above the top of the a ortic arch. Nasogastric tube within the stomach. Extensive bilateral pulmonary opacities unchanged. Heart remains enlarged
[2020-12-13] MEDS: NA CHLORIDE 0.9% 1,000 ML IV SCH (08:35)
[2020-12-13] MEDS ORDERED: VITAL HP 1,000 ML BOT RTH SCH (11:00)
[2020-12-13] MEDS ORDERED: GLUCAGON 1 MG/VIAL IM PRN (12:07)
[2020-12-13] MEDS ORDERED: D50W 25 GM/50 ML SYRINGE IV PRN (12:07)
[2020-12-13] MEDS: INSULIN -REGULAR HUMAN 50 UNIT/0.5 ML ML SQ SCH ×3 (12:26→23:46)
--- NOTE | 2020-12-13 12:53 | P.PN ---
Subjective Date of Service: 12/13/20 Primary Care Provider: [facility] Chief Complaint: COVID-19 pneumonia Not doign well, intubated, Review of Systems is unable to be obtained Physical Examination - Vital Signs Temperature: 99.8 F Blood Pressure: 122/69 Pulse: 104 Respirations: 26 Pulse Ox (%): 90 - Physical Exam General: Unresponsive Assessment & Plan - Problems (Diagnosis) (1) Pneumonia due to 2019 novel coronavirus Current Visit: Yes Status: Acute Plan: respfailure intubated/ Chagne to IV rocepin. Cultures so far neg, Advance Et Tube/ LAbs reviewed/ increase Dobhoff fluids/ DC Lisinipril/ on 100% Fio2 / prog david poor
[2020-12-13] MEDS: METHYLPREDNISOLONE 125 MG INJ IV SCH ×2 (14:00→20:32)
[2020-12-13] MEDS: CEFTRIAXONE/SWI 1gm 1 GM/10 ML SYR IV SCH (15:10)
--- NOTE | 2020-12-13 16:22 | RAD REPORT ---
EXAM DESCRIPTION: RAD - Chest Single View - 12/13/2020 4:06 pm CLINICAL HISTORY: E-Tube placement COMPARISON: Chest Single View dated 12/13/2020; Chest Single View dated 12/12/2020; Chest Single View da michael 12/12/2020; Chest Single View dated 12/12/2020 FINDINGS: The endotracheal tube tip is difficult to appreciate but favored to be at the aortic arch. Enteric tube below the diaphragm. Widespread airspace disease again noted. No fractures are identifi ed. Right subclavian approach PICC with tip is difficult to distinguish but likely overlying the righ t atrium. IMPRESSION: The endotracheal tube is at the level of the aortic arch in satisfactory position. Simil ar widespread bilateral airspace disease.
[2020-12-13] MEDS: HYDROMORPHONE HCL 2 MG/ML inj IV PRN (17:00)
[2020-12-13] MEDS ORDERED: VANCOMYCIN 2 GM in NA CHLORIDE 0.9% 500 ML IVPB SCH ×5 (17:00→18:00)
[2020-12-13] MEDS: ATORVASTATIN 20 MG TAB PO SCH (20:31)
[2020-12-14] MEDS: HYDROMORPHONE HCL 2 MG/ML inj IV PRN ×4 (00:30→21:19)
[2020-12-14] MEDS: propofoL 1,000 MG/100 ML VIAL IV PRN ×7 (04:44→22:43)
[2020-12-14 05:52] LABS: Absolute Lymphocytes (CBC) 0.1 K/uL (0.7-4.9); Basophils % 0.3 % (0-1.3); Hematocrit 42.1 % (39.6-49.0); Lymphocytes % 0.3 % (15.3-44.8); MPV 8.6 fL (7.6-11.3); RBC Red Blood Cell Count 4.58 M/uL (4.33-5.43)
[2020-12-14 06:08] LABS: Arterial Blood Carboxyhemoglob 0.9 % (0-1.5); Blood Gas Oxyhemoglobin 90.6 % (94-97); Blood O2 Saturation 92.5 % (92-98.5)
[2020-12-14] MEDS: INSULIN -REGULAR HUMAN 50 UNIT/0.5 ML ML SQ SCH ×4 (06:08→23:37)
[2020-12-14 06:31] LABS: Albumin 1.5 g/dL (3.4-5.0); Bilirubin Total 0.4 mg/dL (0.2-1.0); Ferritin 3085.1 ng/mL (26-388); Magnesium 2.9 mg/dL (1.8-2.4); Potassium 5.3 mmol/L (3.5-5.1); Protein, Total 5.5 g/dL (6.4-8.2)
--- NOTE | 2020-12-14 07:10 | RAD REPORT ---
EXAM DESCRIPTION: RAD - Chest Single View - 12/14/2020 6:51 am CLINICAL HISTORY: intubated/pna COMPARISON: December 13December 12 TECHNIQUE: AP portable chest image was obtained 12/14/2020 6:51 am . FINDINGS: Endotracheal tube is well positioned with the tip mid aortic arch level 4 cm above the car sammie. NG/OG tube tip is below the diaphragm, off the field of view. Bilateral pneumonia pattern is present not substantially different from most recent comparison. Large cardiac silhouette remains. No measurable pleural effusion and no pneumothorax. No acute bony abnorm ality seen. No acute aortic findings suspected. IMPRESSION: Bilateral pneumonia pattern not substantially different from the preceding studies. ET tube and enteric tube appear well positioned as detailed.
[2020-12-14] MEDS: ASPIRIN EC 81 MG TAB PO SCH (08:17)
[2020-12-14] MEDS: FAMOTIDINE 20 MG/2 ML VIAL IV SCH ×2 (08:17→20:36)
[2020-12-14] MEDS: VITAMIN D 1000 UNIT TAB PO SCH (08:17)
[2020-12-14] MEDS: ZINC SULFATE 220 MG CAP PO SCH (08:17)
[2020-12-14] MEDS: ASCORBIC ACID 500 MG TABLET PO SCH ×4 (08:18→20:36)
[2020-12-14] MEDS: METHYLPREDNISOLONE 125 MG INJ IV SCH ×3 (08:18→20:36)
[2020-12-14] MEDS: APIXABAN 5 MG TABLET PO SCH ×2 (08:18→20:36)
[2020-12-14] MEDS: THIAMINE HCL 100 MG TABLET PO SCH (08:18)
[2020-12-14] MEDS: BARICITINIB 2 MG TABLET PO SCH (08:19)
[2020-12-14] MEDS: CEFTRIAXONE/SWI 1gm 1 GM/10 ML SYR IV SCH (08:20)
[2020-12-14] MEDS: atenoloL 50 MG TAB PO SCH (08:20)
[2020-12-14 09:00] LABS: Blood Morphology Comment NOT SEEN (NOT SEEN); Platelet Estimate ADEQ
--- NOTE | 2020-12-14 10:59 | P.PN ---
Subjective Date of Service: 12/14/20 Primary Care Provider: [place] ignacio Chief Complaint: COVID-19 pneumonia Stable requiring sedation Review of Systems is unable to be obtained Physical Examination - Vital Signs Temperature: 97.3 F Blood Pressure: 104/63 Pulse: 109 Respirations: 26 Pulse Ox (%): 90 Assessment & Plan - Problems (Diagnosis) (1) Pneumonia due to 2019 novel coronavirus Current Visit: Yes Status: Acute Plan: Resp failure Renal function improving/ K elevated/ on tube feeds minimize paralytica.CXRY rev/prog poor on 100% Fio2
--- NOTE | 2020-12-14 14:12 | P.PN ---
Subjective Date of Service: 12/14/20 Primary Care Provider: [facility] Chief Complaint: COVID-19 pneumonia Patient intubated and on mechanical ventilation. He is sedated and on 100% FiO2. Physical Examination - Vital Signs Temperature: 97.3 F Blood Pressure: 92/45 Pulse: 107 Respirations: 30 Pulse Ox (%): 85 - Physical Exam General: Other (Sedated) HEENT: Other (Intubated) Respiratory: Other (Mechanical ventilation) Cardiovascular: No edema Gastrointestinal: Soft and benign, Non-distended Musculoskeletal: No swelling Neurological: Other (Sedated) Assessment And Plan - Current Problems (Diagnosis) (1) Pneumonia due to 2019 novel coronavirus Current Visit: Yes Status: Acute (2) Acute respiratory failure with hypoxia Current Visit: Yes Status: Acute (3) Morbid obesity Current Visit: Yes Status: Acute Physician Review Additional Text: Problem List acute hypoxemic respiratory failure secondary to COVID-19 pneumonia Morbid obesity chronic atrial fibrillation, not on anticoagulation Continue IV steroids, vitamin supplementation, bronchodilators p.r.n.. received ivermectin, On Baracitinib Pulmonary-Dr. León is following Francisco Javier for DVT prophylaxis Patient s/p intubation 12/12 very sensitive to sedation, drops BP. On low-dose Levophed. concern for bacterial superinfection -continue meropenem, vanc, cultures obtained on 12/12. Blood culture growing coagulase positive Staph. Urine culture growing the same. Follow blood culture result. paredes placed PICC line placed 12/12 OG tube placed initially placed to suction to remove air. Tube feeding. VTE: eliqius Code: full Dispo: intubated/sedated, poor prognosis
--- NOTE | 2020-12-14 15:55 | RAD REPORT ---
EXAM DESCRIPTION: RAD - Chest Single View - 12/14/2020 3:13 pm CLINICAL HISTORY: E-Tube placement Dohoff placement Chest pain. COMPARISON: Chest Single View dated 12/14/2020; Chest Single View dated 12/13/2020; Chest Single View d ated 12/13/2020; Chest Single View dated 12/12/2020 FINDINGS: Portable technique limits examination quality. Tip of the endotracheal tube is at the level of the aortic arch. Enteric tube descends into the upper abdomen. Right-sided PICC line has tip in the SVC. Mild to moderate bilateral pulmonary opacities ar e present. The heart is moderately enlarged.
--- NOTE | 2020-12-14 15:59 | RAD REPORT ---
EXAM DESCRIPTION: RAD - Abdomen 1 View (KUB) - 12/14/2020 3:13 pm CLINICAL HISTORY: DOBHOFF PLCMNT Pain COMPARISON: No comparisons FINDINGS: Tip of the enteric tube is in the stomach.
[2020-12-14] MEDS: ATORVASTATIN 20 MG TAB PO SCH (20:36)
[2020-12-15] MEDS: propofoL 1,000 MG/100 ML VIAL IV PRN ×4 (02:48→20:10)
[2020-12-15] MEDS: HYDROMORPHONE HCL 2 MG/ML inj IV PRN ×4 (03:15→20:11)
[2020-12-15 05:04] VITALS: BMI 43.4
[2020-12-15] MEDS: INSULIN -REGULAR HUMAN 50 UNIT/0.5 ML ML SQ SCH ×3 (05:39→17:02)
[2020-12-15 05:54] LABS: Absolute Lymphocytes (CBC) 0.1 K/uL (0.7-4.9); Basophils % 0.2 % (0-1.3); Hematocrit 40.1 % (39.6-49.0); Lymphocytes % 0.6 % (15.3-44.8); MPV 9.1 fL (7.6-11.3); RBC Red Blood Cell Count 4.39 M/uL (4.33-5.43)
[2020-12-15] MEDS: LORazepam 2 MG/ML VIAL IV PRN ×2 (05:56→12:49)
[2020-12-15 06:11] LABS: Albumin 1.6 g/dL (3.4-5.0); Bilirubin Total 0.4 mg/dL (0.2-1.0); Magnesium 3.2 mg/dL (1.8-2.4); Protein, Total 5.5 g/dL (6.4-8.2)
[2020-12-15 06:20] LABS: Arterial Blood Carboxyhemoglob 0.9 % (0-1.5); Blood Gas Oxyhemoglobin 89.2 % (94-97); Blood O2 Saturation 91.5 % (92-98.5)
[2020-12-15 06:22] LABS: C-Reactive Protein 69.5 mg/L (<3.00)
--- NOTE | 2020-12-15 07:28 | RAD REPORT ---
EXAM DESCRIPTION: RAD - Chest Single View - 12/15/2020 5:51 am CLINICAL HISTORY: intubated/pna COMPARISON: Abdomen 1 View (KUB) dated 12/14/2020; Chest Single View dated 12/14/2020; Chest Single Vi ew dated 12/14/2020; Chest Single View dated 12/13/2020 FINDINGS: Endotracheal tube at the aortic arch. Enteric tube below the diaphragm. Similar widespread bilateral airspace disease without significant change. Cardiomegaly. No pneumothorax or significant pleural effusions are identified. No acute osseus abnormality. IMPRESSION: No change in widespread bilateral airspace disease. ET tube in satisfactory position.
[2020-12-15] MEDS ORDERED: SOD POLYSTYREN SUL 15 GM/60 ML UCUP PO ONE ×2 (07:35→14:49)
[2020-12-15] MEDS ORDERED: METHYLPREDNISOLONE 40 MG INJ ONE (08:17)
[2020-12-15] MEDS: METHYLPREDNISOLONE 40 MG INJ IV SCH ×3 (09:00→19:51)
[2020-12-15] MEDS: atenoloL 50 MG TAB PO SCH (09:00)
[2020-12-15] MEDS: VITAMIN D 1000 UNIT TAB PO SCH (09:15)
[2020-12-15] MEDS: CEFTRIAXONE/SWI 1gm 1 GM/10 ML SYR IV SCH (09:16)
[2020-12-15] MEDS: APIXABAN 5 MG TABLET PO SCH ×2 (09:16→19:50)
[2020-12-15] MEDS: ZINC SULFATE 220 MG CAP PO SCH (09:16)
[2020-12-15] MEDS: ASCORBIC ACID 500 MG TABLET PO SCH ×4 (09:16→19:51)
[2020-12-15] MEDS: ASPIRIN EC 81 MG TAB PO SCH (09:17)
[2020-12-15] MEDS: THIAMINE HCL 100 MG TABLET PO SCH (09:17)
[2020-12-15] MEDS: FAMOTIDINE 20 MG/2 ML VIAL IV SCH ×2 (09:17→19:50)
[2020-12-15] MEDS: BARICITINIB 2 MG TABLET PO SCH (09:23)
--- NOTE | 2020-12-15 09:52 | P.PN ---
Subjective Date of Service: 12/15/20 Primary Care Provider: [facility] pierre Chief Complaint: COVID-19 pneumonia Stabel on High conc of Fio2 / hyeprkalemia Review of Systems is unable to be obtained Physical Examination - Vital Signs Temperature: 98.5 F Blood Pressure: 100/40 Pulse: 106 Respirations: 26 Pulse Ox (%): 91 - Physical Exam General: Unresponsive Assessment & Plan - Problems (Diagnosis) (1) Pneumonia due to 2019 novel coronavirus Current Visit: Yes Status: Acute Plan: resp faiure kayexalate 30 g wean off all paralytics/ BC pso for staph aureus/ Change to Cefazolin
--- NOTE | 2020-12-15 13:05 | P.PN ---
Subjective Date of Service: 12/15/20 Primary Care Provider: [facility] Chief Complaint: COVID-19 pneumonia Patient intubated and on mechanical ventilation. He is sedated and on 100% FiO2. No major changes from yesterday. Physical Examination - Vital Signs Temperature: 97.5 F Blood Pressure: 129/67 Pulse: 108 Respirations: 26 Pulse Ox (%): 89 - Physical Exam General: Other (Sedated) HEENT: Other (Intubated) Respiratory: Clear to auscultation bilaterally Cardiovascular: Regular rate/rhythm, Normal S1 S2, Edema (Bilateral upper and lower extremities.) Gastrointestinal: Soft and benign, Non-distended Musculoskeletal: No contractures Neurological: Other (Sedated) Assessment And Plan - Current Problems (Diagnosis) (1) Pneumonia due to 2019 novel coronavirus Current Visit: Yes Status: Acute (2) Acute respiratory failure with hypoxia Current Visit: Yes Status: Acute (3) Morbid obesity Current Visit: Yes Status: Acute Physician Review Additional Text: Problem List acute hypoxemic respiratory failure secondary to COVID-19 pneumonia Morbid obesity chronic atrial fibrillation, not on anticoagulation Continue IV steroids, vitamin supplementation, bronchodilators p.r.n.. s/p ivermectin, On Baracitinib Pulmonary-Dr. León is following [facility] for DVT prophylaxis Patient s/p intubation 12/12. Levophed p.r.n. concern for bacterial superinfection -continue meropenem, vanc, cultures obtained on 12/12. Blood culture growing MSSA Urine culture growing the same. Follow blood culture result. paredes placed PICC line placed 12/12 OG tube placed initially placed to suction to remove air. Continue tube feeding. VTE: eliqius Code: full Dispo: intubated/sedated, poor prognosis
[2020-12-15] MEDS: CEFAZOLIN/SWI 1gm 1 GM/10 ML SYR IV SCH (16:45)
[2020-12-15] MEDS ORDERED: CEFAZOLIN/NS 1gm 1 GM/50 ML BAG IVPB SCH (17:00)
[2020-12-15] MEDS: VITAL AF 1,000 ML BOT RTH SCH (18:41)
[2020-12-16] MEDS: HYDROMORPHONE HCL 2 MG/ML inj IV PRN ×5 (01:11→20:20)
[2020-12-16] MEDS: CEFAZOLIN/SWI 1gm 1 GM/10 ML SYR IV SCH ×3 (01:17→15:59)
[2020-12-16] MEDS: INSULIN -REGULAR HUMAN 50 UNIT/0.5 ML ML SQ SCH ×4 (01:20→17:38)
[2020-12-16] MEDS: propofoL 1,000 MG/100 ML VIAL IV PRN ×5 (02:32→20:24)
[2020-12-16 05:28] LABS: Absolute Lymphocytes (CBC) 0.1 K/uL (0.7-4.9); Basophils % 0.3 % (0-1.3); Hematocrit 39.1 % (39.6-49.0); Lymphocytes % 0.6 % (15.3-44.8); RBC Red Blood Cell Count 4.27 M/uL (4.33-5.43)
[2020-12-16 05:30] LABS: Albumin 1.7 g/dL (3.4-5.0); Bilirubin Total 0.4 mg/dL (0.2-1.0); Potassium 5.2 mmol/L (3.5-5.1); Protein, Total 5.4 g/dL (6.4-8.2)
[2020-12-16] MEDS ORDERED: propofoL 1,000 MG/100 ML VIAL IV ONE (06:04)
--- NOTE | 2020-12-16 07:12 | RAD REPORT ---
EXAM DESCRIPTION: RAD - Chest Single View - 12/16/2020 6:13 am CLINICAL HISTORY: intubated/pna COMPARISON: Chest Single View dated 12/15/2020; Abdomen 1 View (KUB) dated 12/14/2020; Chest Single Vi ew dated 12/14/2020; Chest Single View dated 12/14/2020; Chest For Pe Angio dated 12/01/2020 FINDINGS: Similar aeration lungs with widespread bilateral airspace disease. Right subclavian approa ch PICC tip difficult to visualize but at least at the superior cavoatrial junction. Endotracheal tub e terminates at the top of the aortic arch. Enteric tube noted. IMPRESSION: Similar widespread bilateral airspace disease consistent with multifocal pneumonia. The endotracheal tube tip terminates at the top of the aortic arch.
[2020-12-16] MEDS ORDERED: SOD POLYSTYREN SUL 15 GM/60 ML UCUP PO ONE (07:22)
[2020-12-16] MEDS: ASCORBIC ACID 500 MG TABLET PO SCH ×4 (07:39→20:20)
[2020-12-16] MEDS: ASPIRIN EC 81 MG TAB PO SCH (07:39)
[2020-12-16] MEDS: THIAMINE HCL 100 MG TABLET PO SCH (07:39)
[2020-12-16] MEDS: VITAMIN D 1000 UNIT TAB PO SCH (07:39)
[2020-12-16] MEDS: METHYLPREDNISOLONE 40 MG INJ IV SCH ×3 (07:40→20:19)
[2020-12-16] MEDS: APIXABAN 5 MG TABLET PO SCH ×2 (07:40→20:18)
[2020-12-16] MEDS: ZINC SULFATE 220 MG CAP PO SCH (07:40)
[2020-12-16] MEDS: FAMOTIDINE 20 MG/2 ML VIAL IV SCH ×2 (07:40→20:19)
[2020-12-16] MEDS: BARICITINIB 2 MG TABLET PO SCH (07:41)
[2020-12-16] MEDS: LORazepam 2 MG/ML VIAL IV PRN ×2 (07:54→11:57)
[2020-12-16] MEDS: atenoloL 50 MG TAB PO SCH (08:02)
[2020-12-16 10:33] LABS: Ferritin 2125.7 ng/mL (26-388)
--- NOTE | 2020-12-16 12:48 | P.PN ---
Subjective Date of Service: 12/16/20 Primary Care Provider: [place] ignacio Chief Complaint: COVID-19 pneumonia No sig change/ mild hyperkalemia Review of Systems is unable to be obtained Physical Examination - Vital Signs Temperature: 98.1 F Blood Pressure: 116/72 Pulse: 125 Respirations: 28 Pulse Ox (%): 88 - Physical Exam General: Unresponsive Assessment & Plan - Problems (Diagnosis) (1) Pneumonia due to 2019 novel coronavirus Current Visit: Yes Status: Acute Plan: Resp faiure repeat kayexalte/ Renlal function improving/ O2 satisfactory on 90%/CXRy and labs reviewed/Staph aureus bacteremia
[2020-12-16] MEDS ORDERED: METOPROLOL TARTRATE 5 MG/5 ML INJ IV STA (13:04)
--- NOTE | 2020-12-16 13:44 | P.PN ---
Subjective Date of Service: 12/16/20 Primary Care Provider: [facility] Chief Complaint: COVID-19 pneumonia Patient intubated and on mechanical ventilation. He is sedated and on 100% FiO2. No change in FiO2 requirement. Patient has AFib with RVR with heart rate up to 140 Physical Examination - Vital Signs Temperature: 98.1 F Blood Pressure: 109/68 Pulse: 135 Respirations: 26 Pulse Ox (%): 93 - Physical Exam General: Obese, Other (Sedated) HEENT: Other (Intubated) Neck: JVD not distended Respiratory: Other (Upper airway transmitted sounds.) Cardiovascular: Irregular heart rate/rhythm Gastrointestinal: Normal bowel sounds, Soft and benign, Non-distended Neurological: Other (Sedated) Assessment And Plan - Current Problems (Diagnosis) (1) Pneumonia due to 2019 novel coronavirus Current Visit: Yes Status: Acute (2) Acute respiratory failure with hypoxia Current Visit: Yes Status: Acute (3) Morbid obesity Current Visit: Yes Status: Acute Physician Review Additional Text: Problem List acute hypoxemic respiratory failure secondary to COVID-19 pneumonia Morbid obesity AFib with RVR, not on anticoagulation Continue IV steroids, vitamin supplementation, bronchodilators p.r.n.. s/p ivermectin, On Baracitinib Pulmonary-Dr. León is following Francisco Javier for DVT prophylaxis Patient s/p intubation 12/12. Levophed p.r.n. concern for bacterial superinfection -continue meropenem, vanc, cultures obtained on 12/12. Blood culture growing MSSA Urine culture growing the same. Follow blood culture result. Discontinue meropenem and vancomycin. Patient started on cefazolin. [place] catheter. PICC line placed 12/12 OG tube placed initially placed to suction to remove air. Continue tube feeding. Digoxin p.o. Metoprolol as his blood pressure would tolerate. VTE: eliqius Code: full Dispo: intubated/sedated, poor prognosis
[2020-12-16] MEDS: DIGOXIN 0.25 MG TABLET PO SCH (15:05)
[2020-12-17] MEDS: INSULIN -REGULAR HUMAN 50 UNIT/0.5 ML ML SQ SCH ×4 (00:05→17:03)
[2020-12-17] MEDS: HYDROMORPHONE HCL 2 MG/ML inj IV PRN ×6 (00:07→19:05)
[2020-12-17] MEDS: CEFAZOLIN/SWI 1gm 1 GM/10 ML SYR IV SCH ×3 (00:25→17:03)
[2020-12-17] MEDS: propofoL 1,000 MG/100 ML VIAL IV PRN ×3 (01:00→09:11)
[2020-12-17 05:20] LABS: Hematocrit 38.9 % (39.6-49.0); RBC Red Blood Cell Count 4.28 M/uL (4.33-5.43)
[2020-12-17 05:51] LABS: Albumin 1.8 g/dL (3.4-5.0); Bilirubin Total 0.5 mg/dL (0.2-1.0); Protein, Total 5.4 g/dL (6.4-8.2)
[2020-12-17 05:59] LABS: Potassium 5.9 mmol/L (3.5-5.1)
[2020-12-17] MEDS ORDERED: SOD POLYSTYREN SUL 15 GM/60 ML UCUP PO ONE (06:23)
[2020-12-17] MEDS ORDERED: FUROSEMIDE 40 MG/4 ML VIAL IV ONE (06:25)
[2020-12-17 06:49] LABS: Blood Morphology Comment NOT SEEN (NOT SEEN); Platelet Estimate DECR
[2020-12-17] MEDS ORDERED: SOD POLYSTYREN SUL 15 GM/60 ML UCUP ONE (06:54)
[2020-12-17] MEDS ORDERED: FUROSEMIDE 40 MG/4 ML VIAL ONE (06:54)
[2020-12-17] MEDS: VITAMIN D 1000 UNIT TAB PO SCH (08:18)
[2020-12-17] MEDS: ASPIRIN EC 81 MG TAB PO SCH (08:19)
[2020-12-17] MEDS: BARICITINIB 2 MG TABLET PO SCH (08:19)
[2020-12-17] MEDS: ASCORBIC ACID 500 MG TABLET PO SCH ×4 (08:19→20:23)
[2020-12-17] MEDS: FAMOTIDINE 20 MG/2 ML VIAL IV SCH ×2 (08:19→20:22)
[2020-12-17] MEDS: atenoloL 50 MG TAB PO SCH (08:20)
[2020-12-17] MEDS: METHYLPREDNISOLONE 40 MG INJ IV SCH ×3 (08:20→20:22)
[2020-12-17] MEDS: THIAMINE HCL 100 MG TABLET PO SCH (08:21)
[2020-12-17] MEDS: ZINC SULFATE 220 MG CAP PO SCH (08:22)
[2020-12-17] MEDS: DIGOXIN 0.25 MG TABLET PO SCH (08:22)
[2020-12-17] MEDS: LACTULOSE 20 GM/30 ML UCUP PO SCH ×2 (09:00→20:22)
[2020-12-17] MEDS: APIXABAN 5 MG TABLET PO SCH ×2 (09:00→20:22)
--- NOTE | 2020-12-17 09:10 | RAD REPORT ---
EXAM DESCRIPTION: RAD - Chest Single View - 12/17/2020 5:39 am CLINICAL HISTORY: intubated/pna Chest pain. COMPARISON: Chest Single View dated 12/16/2020; Chest Single View dated 12/15/2020; Abdomen 1 View (KU B) dated 12/14/2020; Chest Single View dated 12/14/2020 FINDINGS: Portable technique limits examination quality. Tip of the endotracheal tube is at the level of the superior aortic arch. Enteric tube tip is is not well visualized. Right-sided PICC line is stable in position. Bilateral pulmonary opacities show no r eal change since yesterday's study.Heart is mildly enlarged.
--- NOTE | 2020-12-17 10:49 | P.PN ---
Subjective Date of Service: 12/17/20 Primary Care Provider: [facility] Chief Complaint: COVID-19 pneumonia No changes. Patient is hyperkalemic. No bowel movement for several days. Now 90% FiO2. Patient has AFib with RVR with heart rate in the 120s. Physical Examination - Vital Signs Temperature: 96.8 F Blood Pressure: 109/58 Pulse: 120 Respirations: 26 Pulse Ox (%): 96 - Physical Exam General: Other (Sedated) HEENT: Other (Intubated) Neck: JVD not distended Respiratory: Other (Bilateral upper airway transmitted sounds) Cardiovascular: Irregular heart rate/rhythm Gastrointestinal: Normal bowel sounds, Soft and benign Integumentary: No rashes Assessment And Plan - Current Problems (Diagnosis) (1) Pneumonia due to 2019 novel coronavirus Current Visit: Yes Status: Acute (2) Acute respiratory failure with hypoxia Current Visit: Yes Status: Acute (3) Morbid obesity Current Visit: Yes Status: Acute - Plan Continue IV steroid, vitamin supplementation, bronchodilators p.r.n.. Patient on Ivermectin Continue Baracitinib Pulmonary-Dr. León is following. Josiquis for DVT prophylaxis. Wean oxygen as tolerated BiPAP p.r.n. Monitor inflammatory markers. Physician Review Additional Text: Problem List acute hypoxemic respiratory failure with hypoxia Pneumonia due to COVID 19. Morbid obesity AFib with RVR, not on anticoagulation Functional constipation. Continue IV steroids, vitamin supplementation, bronchodilators p.r.n.. s/p ivermectin, On Baracitinib Pulmonary-Dr. León is following Eliquis for DVT prophylaxis Patient s/p intubation 12/12. Levophed p.r.n for hypotension. Blood culture growing MSSA Urine culture growing the same. Discontinue meropenem and vancomycin. Patient started on cefazolin. Repeat blood culture today. [place] catheter. PICC line placed 12/12 Continue tube feeding. Digoxin p.o. Metoprolol as his blood pressure would tolerate. Lactulose for constipation VTE: eliqius Code: full Dispo: intubated/sedated, poor prognosis
[2020-12-17] MEDS: propofoL 500 MG/50 ML ML IV PRN ×4 (13:40→21:40)
[2020-12-17] MEDS: VITAL AF 1,000 ML BOT RTH SCH (17:21)
--- NOTE | 2020-12-17 18:13 | P.PN ---
Subjective Date of Service: 12/17/20 Primary Care Provider: [facility] Chief Complaint: COVID-19 pneumonia Renal fuction is worse/hyperkalemia/ CXRY improved Review of Systems is unable to be obtained Physical Examination - Vital Signs Temperature: 99.2 F Blood Pressure: 114/69 Pulse: 110 Respirations: 13 Pulse Ox (%): 92 - Physical Exam General: Unresponsive Assessment & Plan - Problems (Diagnosis) (1) Pneumonia due to 2019 novel coronavirus Current Visit: Yes Status: Acute Plan: Resp failure/ CXRY improving. ET satisfac/ Titrate O2 sat of 90% check ABG/Blood cultures/ Change to IV levaquin add Diflucan high riks for fungal superinfection/ repeat ivermectin/ Repeat dose of kayexalate/add lactulose
[2020-12-17 18:32] LABS: Arterial Blood Carboxyhemoglob 1.1 % (0-1.5); Blood Gas Oxyhemoglobin 88.2 % (94-97); Blood O2 Saturation 90.6 % (92-98.5)
[2020-12-17] MEDS ORDERED: Levofloxacin500mg IV 500 MG/100 ML BAG IV SCH (20:00)
[2020-12-17] MEDS: FLUCONAZOLE 100 MG TAB PO SCH (20:22)
[2020-12-17] MEDS ORDERED: NA CHLORIDE 0.9% 50 ML ONE (20:52)
[2020-12-17] MEDS ORDERED: METOPROLOL TARTRATE 5 MG/5 ML INJ IV STA (23:11)
[2020-12-17] MEDS ORDERED: METOPROLOL TARTRATE 5 MG/5 ML INJ IV ONE (23:37)
[2020-12-18] MEDS: INSULIN -REGULAR HUMAN 50 UNIT/0.5 ML ML SQ SCH ×4 (00:40→18:00)
[2020-12-18] MEDS: propofoL 500 MG/50 ML ML IV PRN ×6 (00:51→12:52)
[2020-12-18] MEDS: HYDROMORPHONE HCL 2 MG/ML inj IV PRN ×2 (00:51→07:35)
[2020-12-18 05:25] LABS: Absolute Lymphocytes (CBC) 0.1 K/uL (0.7-4.9); Basophils % 0.3 % (0-1.3); Hematocrit 40.1 % (39.6-49.0); Lymphocytes % 0.5 % (15.3-44.8); MPV 9.9 fL (7.6-11.3); RBC Red Blood Cell Count 4.41 M/uL (4.33-5.43)
[2020-12-18 06:10] LABS: Albumin 1.8 g/dL (3.4-5.0); Bilirubin Total 0.5 mg/dL (0.2-1.0); C-Reactive Protein 70.9 mg/L (<3.00); Protein, Total 5.5 g/dL (6.4-8.2)
[2020-12-18 06:12] LABS: Potassium 5.9 mmol/L (3.5-5.1)
[2020-12-18] MEDS ORDERED: GLUCAGON 1 MG/VIAL IM PRN (08:32)
[2020-12-18] MEDS ORDERED: D50W 25 GM/50 ML SYRINGE IV PRN (08:32)
[2020-12-18] MEDS: APIXABAN 5 MG TABLET PO SCH (09:25)
[2020-12-18] MEDS: VITAMIN D 1000 UNIT TAB PO SCH (09:25)
[2020-12-18] MEDS: METHYLPREDNISOLONE 40 MG INJ IV SCH ×2 (09:25→14:20)
[2020-12-18] MEDS: ACETAMINOPHEN 500 MG TAB PO PRN ×2 (09:25→12:36)
[2020-12-18] MEDS: ASPIRIN EC 81 MG TAB PO SCH (09:25)
[2020-12-18] MEDS: LACTULOSE 20 GM/30 ML UCUP PO SCH (09:25)
[2020-12-18] MEDS: FAMOTIDINE 20 MG/2 ML VIAL IV SCH (09:25)
[2020-12-18] MEDS: FLUCONAZOLE 100 MG TAB PO SCH (09:26)
[2020-12-18] MEDS: ZINC SULFATE 220 MG CAP PO SCH (09:26)
[2020-12-18] MEDS: THIAMINE HCL 100 MG TABLET PO SCH (09:26)
[2020-12-18] MEDS: ASCORBIC ACID 500 MG TABLET PO SCH ×3 (09:26→17:44)
[2020-12-18] MEDS: DIGOXIN 0.25 MG TABLET PO SCH (09:26)
[2020-12-18] MEDS: atenoloL 50 MG TAB PO SCH (09:26)
--- NOTE | 2020-12-18 10:39 | P.PN ---
Subjective Date of Service: 12/18/20 Primary Care Provider: [facility] Chief Complaint: COVID-19 pneumonia Patient is hyperglycemic. Still hyperkalemic. No bowel movement for several days. Patient has AFib with RVR with heart rate in the 120-140s. Physical Examination - Vital Signs Temperature: 100.1 F Blood Pressure: 104/60 Pulse: 130 Respirations: 23 Pulse Ox (%): 92 - Physical Exam General: Obese, Other (Sedated) HEENT: Other (ETT) Respiratory: Other (Bilateral upper airway transmitted sounds) Cardiovascular: Edema (Bilateral upper and lower extremities), Irregular heart rate/rhythm Gastrointestinal: Soft and benign, Non-distended Musculoskeletal: No contractures Neurological: Other (Sedated.) Assessment And Plan - Current Problems (Diagnosis) (1) Pneumonia due to 2019 novel coronavirus Current Visit: Yes Status: Acute (2) Acute respiratory failure with hypoxia Current Visit: Yes Status: Acute (3) Morbid obesity Current Visit: Yes Status: Acute - Plan Continue IV steroid, vitamin supplementation, bronchodilators p.r.n.. Patient on Ivermectin Continue Baracitinib Pulmonary-Dr. León is following. Eliquis for DVT prophylaxis. Wean oxygen as tolerated BiPAP p.r.n. Monitor inflammatory markers. Physician Review Additional Text: Problem List acute hypoxemic respiratory failure with hypoxia Pneumonia due to COVID 19. Morbid obesity AFib with RVR, not on anticoagulation Functional constipation. Continue IV steroids, vitamin supplementation, bronchodilators p.r.n.. s/p ivermectin, On Baracitinib Pulmonary-Dr. León is following Eliquis for DVT prophylaxis Patient s/p intubation 12/12. Levophed p.r.n for hypotension. Blood culture growing MSSA Urine culture growing the same. Discontinue meropenem and vancomycin. Patient started on cefazolin. Repeat blood culture today. [place] catheter. PICC line placed 12/12 Continue tube feeding. Digoxin p.o. Replaced atenolol with metoprolol and titrate metoprolol as his blood pressure would tolerate Lactulose for constipation. Increase insulin sliding scale to aggressive scale, start Lantus 15 units daily and titrate. Continue Kayexalate for hyperkalemia. Consult to nephrology VTE: eliqius Code: full Dispo: intubated/sedated, poor prognosis
[2020-12-18] MEDS ORDERED: INSULIN -REGULAR HUMAN 50 UNIT/0.5 ML ML IV ONE ×2 (12:00→18:22)
[2020-12-18] MEDS: LORazepam 2 MG/ML VIAL IV PRN ×3 (12:45→18:04)
[2020-12-18] MEDS ORDERED: LACTULOSE 20 GM/30 ML UCUP PO SCH (14:00)
[2020-12-18] MEDS ORDERED: propofoL 1,000 MG/100 ML VIAL IV PRN (14:20)
[2020-12-18] MEDS ORDERED: INSULIN GLARGINE 100 UNITS/ML SQ SCH (16:10)
[2020-12-18 16:20] VITALS: O2SAT 90
[2020-12-18 16:28] LABS: Potassium 6.5 mmol/L (3.5-5.1)
[2020-12-18] MEDS ORDERED: SOD POLYSTYREN SUL 15 GM/60 ML UCUP PO ONE (16:44)
[2020-12-18] MEDS ORDERED: CALCIUM GLUC 10% INJ 4.65 MEQ in NA CHLORIDE 0.9% 100 ML IV ONE (16:44)
[2020-12-18] MEDS ORDERED: FUROSEMIDE 40 MG/4 ML VIAL IV ONE (16:44)
[2020-12-18] MEDS ORDERED: METOPROLOL TAR 25 MG TAB PO SCH (18:00)
[2020-12-18] MEDS ORDERED: CALCIUM GLUCONATE 1 GM IVPB 1 GM/50 ML BAG IV ONE (18:18)
[2020-12-18 18:21] LABS: Blood Gas Oxyhemoglobin 86.6 % (94-97); Blood O2 Saturation 88.7 % (92-98.5)
[2020-12-18 18:34] LABS: Troponin I 11.4 ng/mL (0.0-0.045)
--- NOTE | 2020-12-18 19:32 | RAD REPORT ---
EXAM DESCRIPTION: US - Renal Ultrasound-Limited - 12/18/2020 6:45 pm CLINICAL HISTORY: bruna COMPARISON: No comparisons FINDINGS: The right kidney measures 12.5 x 7.3 x 6.6 cm. The left kidney could not be visualized. L arge body habitus, intubated status and patient restraints precluded obtaining adequate acoustic wind ow. Right renal cortical thickness is normal. There is increased echogenicity of the right renal parenchy ma consistent with underlying medical renal disease. No hydronephrosis or suspicious renal mass. Bladder could not be adequately visualized. IMPRESSION: Right-side medical renal disease is evident with no right-sided hydronephrosis or right- sided mass. Left kidney could not be visualized.
--- NOTE | 2020-12-18 19:51 | CON ---
Date of Consultation: 12/18/2020 Chief Complaint: Acute kidney injury on chronic kidney injury associated with hyperkalemia. History Of Present Illness: The patient remains in ICU. He is on pressors. He is intubated for acu te respiratory failure. He has COVID pneumonia. He has multiple medical problems including history of atrial fibrillation, obstructive sleep apnea. He presented to emergency room for shortness of brad ath in November. The patient had COVID test done on November 27 and symptom began on November 24. The patient w as taking oral prednisone at home. He did not feel better. He came to emergency room, was found to have severely elevated white count, positive D-dimer, and elevated protein and ferritin. He had CT s can per PE protocol, which showed pneumonia. He was O2 nasal cannula with saturation ranging from 88 to 91. Currently, he is intubated and on FiO2 80%. Past Medical History: Atrial fibrillation, obstructive sleep apnea, and tongue surgery for cancer. Family History: Mother had cancer. Brother with diabetes mellitus and kidney disease. Social History: Never smoker. Alcohol denies. Review of Systems: Unobtainable. The patient is intubated. Physical Examination: General: The patient is intubated. Lungs: Bilateral breath sounds present. Heart: S1, S2. Abdomen: Obese, soft. Extremities: No edema. Laboratory Data: WBC 18.2, creatinine 13.3, hematocrit 40.1, platelet count 88,000, neutrophils 98.6 , lymphocytes 0.5. Chemistry showed sodium 147, potassium 6.5, chloride 111, CO2 33, BUN 124, creati nine 1.98, glucose 476, calcium 7.8. Urinalysis showed on December 01 specific gravity was greater than 1.030, pH 7.0, WBC less than 5, RBC less than 5, urine bacteria less than 20, urine protein 3+, nitri wilmer negative, blood trace. Today, urinalysis is pending. Urine culture showed 2+ staphylococcus coa gulase-positive. The patient is on levofloxacin according to the sensitivity panel. Blood culture o n December 12 showed Staph aureus. Digoxin level today was 1.2. Vancomycin trough level on December 14 was 5.4. Blood gas showed pH 7.39 , pCO2 52, pO2 57.7, and ABG O2 saturation 88.7. Impression And Plan: 1.Acute kidney injury, nonoliguric, associated with hyperkalemia. The patient is on ventilator on h igh-flow oxygen with FiO2 of 80%. The patient developed acute on chronic kidney injury with hyperkal emia. Plan is to change feeding formula. The patient was on high potassium intake formula and curre ntly he will resume Nepro with limited potassium intake. The patient has COVID pneumonia and sepsis, likely there is ATN secondary to renal hypoperfusion in setting of sepsis with hypotension. Chest x- ray showed bilateral pneumonia pattern and not different substantially from preceding study. The pat ient is on treatment for COVID pneumonia and team and pulmonary service is adjusting medication. Cur rently, he is on high-dose of methylprednisolone, which is a cause of high BUN-creatinine ratio as we ll as renal hypoperfusion is driving the high BUN-creatinine ratio. 2.Diabetes mellitus. Continue insulin and adjust insulin adequate blood glucose control. Hyperglyc emia also contributory to elevated potassium level. Plan is to check ABG and monitor for any evidenc e of acidosis. 3.The patient will have workup to rule out obstructive uropathy. Renal ultrasound will be done. Th e patient has history of proteinuria. This can be evaluated when renal function is at baseline. 4.Continue low-potassium intake formula. Continue medication to control hyperkalemia. The patient received Kayexalate, IV glucose, and IV calcium gluconate as well as sodium bicarbonate infusion. Th e patient may benefit from albuterol inhaler as well. If potassium does not improve, the patient kelsea l need aggressive insulin coverage to prevent hyperglycemia, which is contributory to hyperkalemia in this particular patient. Continue to monitor renal function and avoid nephrotoxic medication. The patient cannot take ibuprofen, cannot take nonsteroidal anti-inflammatory medication. 5.Florinef was started in potassium control. Lasix will be used as well to induce diuresis and to c ontrol potassium level. The patient may be a candidate for dialysis in near future and this will req uire CVVHD, CRRT in higher level of care hospital. EB/MODL Voice ID: [id number] Report ID: [id number]
[2020-12-18 20:06] LABS: Protime INR 1.48
[2020-12-18 20:19] LABS: Potassium 7.7 mmol/L (3.5-5.1)
[2020-12-18] MEDS ORDERED: NOREPINEPHRINE 4mg/D5W 250mL 4 MG/250 ML BAG IV ONE (20:28)
[2020-12-18 20:30] LABS: Phosphorus 6.4 mg/dL (2.5-4.9)
[2020-12-18] MEDS ORDERED: Caclcium Chloride 10% INJ SYR IV ONE (20:38)
[2020-12-18] MEDS ORDERED: NA CHLORIDE 0.9% 1,000 ML IV ONE (20:38)
[2020-12-18] MEDS ORDERED: EPINEPHrine 1 MG/10 ML SYR IV ONE (20:38)
[2020-12-18 20:40] LABS: Magnesium 3.7 mg/dL (1.8-2.4)
[2020-12-18] MEDS ORDERED: CALCIUM GLUCONATE 1 GM IVPB 2 GM/100 ML BAG IV ONE (20:58)
[2020-12-18 21:27] VITALS: BP 63/51; TEMP 97
[2020-12-19] MEDS ORDERED: FUROSEMIDE 40 MG/4 ML VIAL IV SCH (09:00)
[2020-12-19] MEDS ORDERED: INSULIN GLARGINE 100 UNITS/ML SQ SCH (09:00)
[2020-12-19] MEDS ORDERED: FLUDROCORTISONE 0.1 MG TAB FT SCH (09:00)
--- NOTE | 2020-12-19 18:39 | P.DS ---
Admission Date: 12/01/20 Discharge Date: 12/18/20 Primary Care Provider: [place] ignacio Disposition: Reason for Admission: COVID-19 pneumonia - Problems (1) Pneumonia due to 2019 novel coronavirus Status: Acute (2) Acute respiratory failure with hypoxia Status: Acute (3) Morbid obesity Status: Acute Brief History of Present Illness: 59-year-old man with history of atrial fibrillation, obstructive sleep apnea presented to the emergency department for shortness of breath. Patient reported testing positive for Covid on 11/27/2020 with symptoms beginning on 11/24/2020. Patient had been on oral prednisone at home, not feeling any better. Patient evaluated in the emergency department, labs significant for white blood cell count 12.4 D-dimer 1061 ferritin 745 C-reactive protein [address] PE protocol showed moderate COVID-19, Saturating around 88 to 91% on room air. Patient was admitted for further management. Hospital Course: Acute hypoxemic respiratory failure with hypoxia Pneumonia due to COVID 19. Morbid obesity AFib with RVR, not on anticoagulation Functional constipation. Patient admitted to the medical floor and started on IV steroids, vitamin supplementation, bronchodilators p.r.n.. s/p ivermectin, Also treated with Baracitinib. Patient clinical condition got worse, he was transitioned to BiPAP and subsequently intubated. He required Levophed for hypotension. Patient seen and evaluated by Pulmonary-Dr. León who assisted with management. Blood culture grew MSSA Urine culture growing the same. Patient treated initially with meropenem and vancomycin and later transition to cefazolin. He developed rapid atrial fibrillation which was managed with metoprolol and digoxin. He developed hyperglycemia which was managed with Lantus insulin. He also developed hyperkalemia managed with Kayexalate. Nephrology was consulted to assist with management of hyperkalemia. Patient later developed hypotension followed by PEA. He did not respond to resuscitation and . Vital Signs/Physical Exam: Temp Pulse Resp BP Pulse Ox 97 F 125 H 34 H 63/51 L 85 L 12/18/20 20:00 12/18/20 20:30 12/18/20 20:15 12/18/20 20:30 12/18/20 20:00 Laboratory Data at Discharge: WBC Cancelled 12/19/20 05:00 Hgb Cancelled 12/19/20 05:00 Hct Cancelled 12/19/20 05:00 Plt Count Cancelled 12/19/20 05:00 PT 17.1 SECONDS (9.5-12.5) H 12/18/20 19:49 INR 1.48 12/18/20 19:49 APTT 27.4 SECONDS (24.3-36.9) 12/01/20 15:46 Sodium 149 mmol/L (136-145) H 12/18/20 19:49 Potassium 7.7 mmol/L (3.5-5.1) H* 12/18/20 19:49 BUN 132 mg/dL (7-18) H 12/18/20 19:49 Creatinine 2.89 mg/dL (0.55-1.3) H 12/18/20 19:49 Glucose 454 mg/dL (74-106) H* 12/18/20 19:49 Phosphorus 6.4 mg/dL (2.5-4.9) H 12/18/20 19:49 Magnesium 3.7 mg/dL (1.8-2.4) H* D 12/18/20 19:49 Total Bilirubin 0.5 mg/dL (0.2-1.0) 12/18/20 04:55 AST 60 U/L (15-37) H 12/18/20 04:55 ALT 66 U/L (12-78) 12/18/20 04:55 Alkaline Phosphatase 140 U/L (45-117) H 12/18/20 04:55 Troponin I 11.40 ng/mL (0.0-0.045) H* 12/18/20 17:41 Triglycerides 128 mg/dL (<150) 12/02/20 04:10 Cholesterol 160 mg/dL (<200) 12/02/20 04:10 HDL Cholesterol 25 mg/dL (40-60) L 12/02/20 04:10 Cholesterol/HDL Ratio 6.40 12/02/20 04:10 Lipase 84 U/L (73-393) 12/01/20 15:46 Home Medications: Atenolol [Tenormin] 50 mg PO DAILY 12/02/20 Benzonatate [Tessalon Perle*] 100 mg PO TID PRN 12/02/20 hydroCHLOROthiazide [Hydrochlorothiazide] 25 mg PO DAILY 12/02/20 lisinopriL [Prinivil*] 10 mg PO DAILY 12/02/20 predniSONE [Prednisone*] 20 mg PO SEECOM 12/02/20 Followup: NONE,NONE [Primary Care Provider] -
[2020-12-23 07:09] LABS: Alpha-1-Globulins 0.4 g/dL (0.2-0.3); Gamma Globulins 0.8 g/dL (0.8-1.7); INTERPRETATION REPORT
[2020-12-23 18:32] LABS: HBsAG Nonreactive (Nonreactive)
== END 2020-12-18 20:39 | disposition expired | DRG 207 ==
LOC: ER 11:47 → ERHOLD 20:10 → 4TH 12-04 21:37 → 3RD-ICU 12-12 11:09
PROVIDERS: ADMIT Internal Medicine; ATTEND Internal Medicine
PROC: 0BH17EZ Insertion of Endotracheal Airway into Trachea, Via Natural or Artificial Opening (ICD-10-PCS; principal; 2020-12-12)
PROC: 5A1955Z Respiratory Ventilation, Greater than 96 Consecutive Hours (ICD-10-PCS; 2020-12-12)
PROC: 02HV33Z Insertion of Infusion Device into Superior Vena Cava, Percutaneous Approach (ICD-10-PCS; 2020-12-12)
PROC: 5A12012 Performance of Cardiac Output, Single, Manual (ICD-10-PCS; 2020-12-18)
DX: U07.1 COVID-19 (principal); J96.01 Acute respiratory failure with hypoxia; J12.82 Pneumonia due to coronavirus disease 2019; A41.89 Other specified sepsis; R65.21 Severe sepsis with septic shock; R04.2 Hemoptysis; Z68.41 Body mass index [BMI] 40.0-44.9, adult; N17.9 Acute kidney failure, unspecified; I48.91 Unspecified atrial fibrillation; G47.33 Obstructive sleep apnea (adult) (pediatric); E66.01 Morbid (severe) obesity due to excess calories; E87.5 Hyperkalemia; K59.04 Chronic idiopathic constipation; R73.9 Hyperglycemia, unspecified
CPT/HCPCS: 36415; 36569; 71045; 71046; 71275; 74018; 76775; 80048; 80053; 80061; 80074; 80076; 80162; 80202; 81003; 81015; 82550; 82728; 82805; 82947; 83605; 83615; 83690; 83735; 84100; 84132; 84145; 84165; 84439; 84443; 84484; 85025; 85379; 85610; 85730; 86021; 86140; 87040; 87070; 87077; 87086; 87088; 87186; 87205; 93005; 94002; 94003; 94660; 94760; 96372; 96374; 96375; 99285; J0171; J0330; J0610; J0690; J0696; J1170; J1650; J1815; J1940; J2185; J2250; J2270; J2405; J2704; J2920; J2930; J3010; J3370; J7030; J7040; J7050; J7060; Q9967